=== PATIENT | male | born 1970 | race Caucasian/White ===

== ENCOUNTER → 2021-02-08 08:25 | Outpatient (BNVA) | payer OTHER, SELFPAY | PROVIDERS: PCP Internal Medicine; Visit Provider Internal Medicine ==

== ENCOUNTER 2021-03-06 06:03 | Outpatient (REF) | payer OTHER, SELFPAY | END 2021-03-06 06:04 | disposition home or self-care (01) | LOC: HO.RADIR 06:03 | PROVIDERS: Visit Provider Internal Medicine | DX: M51.24 Other intervertebral disc displacement, thoracic region (principal) | CPT/HCPCS: 20553; J3300; Q9967 ==

== ENCOUNTER 2021-03-20 05:59 | Outpatient (REF) | payer OTHER, SELFPAY ==
--- NOTE | ~2021-03-20 | FL_ITS ---
EXAMINATION: XR FLUOROSCOPY WITH IMAGES CLINICAL INFORMATION: Interval disc displacement COMPARISON: None. TECHNIQUE: Fluoroscopy performed by at least Amie Ayon. Fluoroscopy time: 0.1 minutes DAP: 1.43 Gycm2 Images: 2 FINDINGS: Fluoroscopy was provided to referring physician for pain management. FL/FL guidance in treatment room IMPRESSION: Fluoroscopy provided to referring physician for pain management.
== END 2021-03-20 06:00 | disposition home or self-care (01) ==
LOC: HO.RADIR 05:59
PROVIDERS: Visit Provider Internal Medicine
DX: M51.24 Other intervertebral disc displacement, thoracic region (principal); G58.8 Other specified mononeuropathies
CPT/HCPCS: 64420; 64421; Q9967

== ENCOUNTER → 2021-03-25 11:32 | Outpatient (BNVA) | payer OTHER, SELFPAY | PROVIDERS: PCP Internal Medicine; Visit Provider Internal Medicine ==

== ENCOUNTER 2021-05-01 06:29 | Outpatient (REF) | payer OTHER, SELFPAY ==
--- NOTE | ~2021-05-01 | FL_ITS ---
EXAMINATION: XR FLUOROSCOPY WITH IMAGES CLINICAL INFORMATION: Mononeuropathy. COMPARISON: None. TECHNIQUE: Fluoroscopy performed by Amie Ayon. Fluoroscopy time: 0.6 minutes DAP: 5.07 Gycm2 Images: 1 FINDINGS: A single image obtained of the left posterior chest wall reveals needle positioned adjacent to and inferior to left 11th, 10th and ninth ribs with contrast opacification for pain management. FL/FL guidance in treatment room IMPRESSION: Fluoroscopy provided to referring physician for pain management.
== END 2021-05-01 06:30 | disposition home or self-care (01) ==
LOC: HO.RADIR 06:29
PROVIDERS: Visit Provider Internal Medicine
DX: G58.8 Other specified mononeuropathies (principal); M51.24 Other intervertebral disc displacement, thoracic region

== ENCOUNTER → 2021-05-20 09:56 | Outpatient (BNVA) | payer OTHER, SELFPAY | PROVIDERS: PCP Internal Medicine; Visit Provider Internal Medicine ==

== ENCOUNTER → 2021-05-31 09:39 | Outpatient (BNVA) | payer OTHER, SELFPAY | PROVIDERS: PCP Internal Medicine; Visit Provider Internal Medicine ==

== ENCOUNTER → 2021-07-05 08:22 | Outpatient (BNVA) | payer OTHER, SELFPAY | PROVIDERS: PCP Internal Medicine; Visit Provider Internal Medicine ==

== ENCOUNTER 2021-07-31 05:56 | Outpatient (REF) | payer OTHER, SELFPAY ==
--- NOTE | ~2021-07-31 | FL_ITS ---
EXAMINATION: XR FLUOROSCOPY WITH IMAGES CLINICAL INFORMATION: G58.8 - Other specified mononeuropathies COMPARISON: None. TECHNIQUE: Fluoroscopy performed by Dr. Osito Moses. Fluoroscopy time: 1.7 minutes DAP: 11.6 Gycm2 Images: 4 FINDINGS: There is interlaminar spinal needle approximately level T11-T12. Epidural contrast is seen. No vascular communication. No bony abnormality. FL/FL guidance in treatment room IMPRESSION: Fluoroscopy for pain management procedure.
== END 2021-07-31 05:57 | disposition home or self-care (01) ==
LOC: HO.RADIR 05:56
PROVIDERS: Visit Provider Internal Medicine
DX: M51.24 Other intervertebral disc displacement, thoracic region (principal); G58.8 Other specified mononeuropathies; Z79.899 Other long term (current) drug therapy
CPT/HCPCS: 62323; J1040; Q9967

== ENCOUNTER → 2021-08-23 08:53 | Outpatient (BNVA) | payer OTHER, SELFPAY | PROVIDERS: PCP Internal Medicine; Visit Provider Internal Medicine ==

== ENCOUNTER → 2021-11-11 08:49 | Outpatient (BNVA) | payer OTHER, SELFPAY | PROVIDERS: PCP Internal Medicine; Visit Provider Internal Medicine ==

== ENCOUNTER → 2021-12-09 08:52 | Outpatient (BNVA) | payer OTHER, SELFPAY | PROVIDERS: PCP Internal Medicine; Visit Provider Internal Medicine | DX: Z13.89 Encounter for screening for other disorder (principal) ==

== ENCOUNTER → 2022-01-17 09:28 | Outpatient (BNVA) | payer OTHER, SELFPAY | PROVIDERS: PCP Internal Medicine; Visit Provider Nurse Practitioner Family | DX: Z13.89 Encounter for screening for other disorder (principal) ==

== ENCOUNTER 2022-01-22 10:27 | Day surgery (SDC) | payer OTHER, SELFPAY ==
[2022-01-16 11:07] VITALS: BMI 28.2
--- NOTE | 2022-01-21 09:25 | P.CONAN_ITS ---
Documented by User: Cassandra Costello NP 01/21/22 09:31 HPI - Anesthesia Eval Consult details Narrative: 51yo M for Lumbar Spinal Cord Stimulation Trial plavix for hx of cardiac stent prn opioids daily PMFSH Active Problems Active Problems: All Active Problems (Updated 08/23/21 @ 10:50 by Osito Moses MD) Post laminectomy syndrome (Acute) Intercostal neuralgia (Acute) Herniated thoracic disc without myelopathy (Acute) Past Medical History Medical History (Updated 08/23/21 @ 10:50 by Osito Moses MD) Colonoscopy refused Herniated thoracic disc without myelopathy Intercostal neuralgia Low back pain with sciatica BARRY (obstructive sleep apnea) Post laminectomy syndrome Rib pain Thoracic radiculopathy due to diabetes mellitus Type 2 diabetes mellitus Surgical History Surgical History (Updated 02/08/21 @ 08:32 by YANNI Lambert) Presence of stent in coronary artery Social History Social History Patient Tobacco Use Status: Never used Tobacco Use of substances other than those prescribed or required for medical reasons: Yes Substance Use Frequency: Weekly Are you DNR?: No Advance Directives: No Advance Directives Information Provided: Yes Meds Allergies Allergy/AdvReac Type Severity Reaction Status Date / Time duloxetine [From Cymbalta] Allergy unknown Verified 01/17/22 09:51 nabumetone Allergy unknown Verified 01/17/22 09:51 penicillin G Allergy unknown Verified 01/17/22 09:51 venlafaxine [From Effexor] Allergy unknown Verified 01/17/22 09:51 Home Medications Medication Instructions Recorded Confirmed Last Taken Type aspirin 81 mg tablet,delayed 81 mg PO DAILY 02/08/21 01/17/22 Unknown History release (Adult Aspirin Regimen) carvedilol 3.125 mg tablet 3.125 mg PO BID 02/08/21 01/17/22 Unknown History clopidogrel 75 mg tablet 75 mg PO DAILY 02/08/21 01/17/22 Unknown History isosorbide mononitrate 30 mg 30 mg PO DAILY 02/08/21 01/17/22 Unknown History tablet,extended release 24 hr rosuvastatin 40 mg tablet 40 mg PO DAILY 02/08/21 01/17/22 Unknown History pantoprazole 40 mg granules 40 mg PO DAILY 03/06/21 01/17/22 Unknown History delayed-release for susp in packet (Protonix) empagliflozin 25 mg tablet 25 mg PO DAILY 11/11/21 01/17/22 Unknown History (Jardiance) glipizide 5 mg tablet 5 mg PO BID 11/11/21 01/17/22 Unknown History Exam Exam Date and Time: January 21, 2022 0925 Height,Weight and Vital Signs: Height 6 ft 1 in Weight 97.069 kg Assessment and Plan Assessment Anesthesia Assessment: Chart Reviewed Documented by User: Kary Infante MD 01/22/22 13:04 [facility] Active Problems Active Problems: All Active Problems (Updated 08/23/21 @ 10:50 by Osito Moses MD) Post laminectomy syndrome (Acute) Intercostal neuralgia (Acute) Herniated thoracic disc without myelopathy (Acute) CAD s/p [place] 2017 Has had 5 stents since 2016. Last stent 12/2020. On plavix. Last dose 01/15/22. Denies recent chest pain. BARRY. Not using CPAP machine Past Medical History Medical History (Updated 08/23/21 @ 10:50 by Osito Moses MD) Colonoscopy refused Herniated thoracic disc without myelopathy Intercostal neuralgia Low back pain with sciatica BARRY (obstructive sleep apnea) Post laminectomy syndrome Rib pain Thoracic radiculopathy due to diabetes mellitus Type 2 diabetes mellitus Family History Family history of problems with anesthesia: No Surgical History Surgical History (Updated 02/08/21 @ 08:32 by YANNI Lambert) Presence of stent in coronary artery History of Problems with Anesthesia: No Social History Social History Patient Tobacco Use Status: Never used Tobacco Use of substances other than those prescribed or required for medical reasons: Yes Substance Use Frequency: Weekly Are you DNR?: No Advance Directives: No Advance Directives Information Provided: Yes Meds Allergies Allergy/AdvReac Type Severity Reaction Status Date / Time duloxetine [From Cymbalta] Allergy unknown Verified 01/17/22 09:51 nabumetone Allergy unknown Verified 01/17/22 09:51 penicillin G Allergy unknown Verified 01/17/22 09:51 venlafaxine [From Effexor] Allergy unknown Verified 01/17/22 09:51 Home Medications Medication Instructions Recorded Confirmed Last Taken Type aspirin 81 mg tablet,delayed 81 mg PO DAILY 02/08/21 01/17/22 Unknown History release (Adult Aspirin Regimen) carvedilol 3.125 mg tablet 3.125 mg PO BID 02/08/21 01/17/22 Unknown History clopidogrel 75 mg tablet 75 mg PO DAILY 02/08/21 01/17/22 Unknown History isosorbide mononitrate 30 mg 30 mg PO DAILY 02/08/21 01/17/22 Unknown History tablet,extended release 24 hr rosuvastatin 40 mg tablet 40 mg PO DAILY 02/08/21 01/17/22 Unknown History pantoprazole 40 mg granules 40 mg PO DAILY 03/06/21 01/17/22 Unknown History delayed-release for susp in packet (Protonix) empagliflozin 25 mg tablet 25 mg PO DAILY 11/11/21 01/17/22 Unknown History (Jardiance) glipizide 5 mg tablet 5 mg PO BID 11/11/21 01/17/22 Unknown History Exam Height,Weight and Vital Signs: Height 6 ft 1 in Weight 97.069 kg Vital Signs Temp Pulse Resp BP Pulse Ox 01/22/22 11:22 96.4 F L 96 18 138/91 H 100 Pertinent Lab Results Pertinent Lab Results: Lab Results 01/22/22 Range/Units 10:56 POC Glucose 128 H (60-115) mg/dL Airway Mallampati Class: II TM Dist: >3cm Neck ROM: Full Loose/Missing/Broken Teeth: No Heart: RRR Lungs: CTAB Assessment and Plan Assessment Anesthesia Assessment: Anesthesia Plan Discussed Final Anesthetic Review Family History of Problems with Anesthesia: No History of Problems with Anesthesia: No NPO: Yes ASA Class: III Final Preanesthetic Review: No Changes in Pt Med Stat, Meds/Allgs Chart Reviewed, Consent Obtained/Reviewed and Anes Risks/Benef Reviewed Patient Risk: Intermediate Procedure Risk: Low Assessment/Block/Sedation in SS: Assess/Block/Sedation-SS Anesthetic Plan Anesthetic Plan: MAC: Disposition: Standard PACU
--- NOTE | ~2022-01-22 | FL_ITS ---
EXAMINATION: XR FLUOROSCOPY WITH IMAGES CLINICAL INFORMATION: Spinal stimulator trial. COMPARISON: 07/31/2021. TECHNIQUE: Fluoroscopy performed by Dr. Moses. Fluoroscopy time: 6.7 minutes DAP: 19.1 mGycm2 Images: 2 FINDINGS: There are 2 digital images of thoracic spine revealing a solitary posterior spinal stimulator in mid to upper dorsal spine region. Visualized bones are grossly unremarkable except for mild lateral spondylosis. FL/FL guidance in OR IMPRESSION: Fluoroscopy guidance was provided to the referring physician during spinal stimulator trial.
[2022-01-22 10:58] LABS: Glucose, Whole Blood 128 mg/dL (60-115)
[2022-01-22 11:22] VITALS: BP 138/91; PULSE 96; RESP 18; TEMP 35.8; O2SAT 100; BMI 27.7
[2022-01-22] MEDS: Lactated Ringers 1,000 ML 100 ML IVCONT (11:29)
--- NOTE | 2022-01-22 12:44 | MHC.SHP ---
Pre-Procedural Eval Section A Date of Service: 01/22/22 The patient is an INPATIENT: No Changes since office visit: Yes Patient answered all questions The History & Physical has been completed within 30 days and I have reviewed it.: No Section B Chief Complaint: Postlaminectomy syndrome Relevant Family History (Specify if Yes): No Relevant Social History: None Present Medications: None Medical History: Significant History (recovered from COVID 4 weeks ago) Allergies: Allergies Allergy/AdvReac Type Severity Reaction Status Date / Time duloxetine [From Cymbalta] Allergy unknown Verified 01/17/22 09:51 nabumetone Allergy unknown Verified 01/17/22 09:51 penicillin G Allergy unknown Verified 01/17/22 09:51 venlafaxine [From Effexor] Allergy unknown Verified 01/17/22 09:51 Plan Diagnosis/Plan: Unchanged I have reviewed the history and physical and performed a pertinent physical examination on my patient. No changes have occurred unless specified.
--- NOTE | 2022-01-22 13:09 | P.OP_ITS ---
Operative Note Operative Note Date of Service: 01/22/22 Narrative: Percutaneous Spinal Cord Stimulator Trial, Lumbar After obtaining written consent, pre-procedure blood pressure and heart rate were recorded and are in the nursing record for review. A peripheral IV was started. Antibiotics, clindamycin 900mg, were given intraoperatively. The patient was placed in a prone position.? The patient was sedated by the anesthesiologist. The thoracolumbar area was widely prepped with ChloraPrep, allowed to dry and draped in sterile fashion. Fluoroscopy was used to identify the target interlaminar spaces and appropriate needle insertion sites. The skin and subcutaneous tissue was anesthetized with 1% lidocaine and 0.25% ropivacaine. A 14 gauge Tuohy epidural needles was then advanced from this point in a right paramedian approach to the epidural space opening at T12/L1 in terspace, where loss of resistance was found using air. No paresthesias were elicited with needle placement. No CSF or heme was present upon needle placement. A guide wire was then used to confirm placement into the epidural space at each level under live fluoroscopy. A 1x8 stimulator lead wire was then threaded to the top of T5 under live fluoroscopy. Resistance was encountered around T7/T8 epidural space. A stiff stylet was used to negotiate this area of resistance. The lead advanced midline.?Paresthesia testing showed reasonable coverage of the area of patient's usual pain using the single lead. Therefore, decision was made to proceed with trial using single lead only. The Tuohy needle was then completely removed under live fluoroscopy. The stimulator wire was then secured with 0 ticron sutures securing the anchors, sterile strips and gauze and tegaderm for skin dressing. The patient tolerated the procedure well and no complications were encountered. Following the procedure the patient's vital signs were stable. The patient was discharged home in good condition after being given discharge instructions. Time Out: Immediately prior to the procedure, the following was verbally con firmed that there is a signed consent form and that the correct patient, planned procedure, site and side are consistent with documentation and that necessary equipment and/or blood products are available prior to the start of the case. Complications: none EBL: <5 cc
--- NOTE | 2022-01-22 13:09 | PM.OP ---
Brief Operative Note Date of Service: 01/22/22 Pre-op diagnosis: Post-laminectomy syndrome Post-op diagnosis: same Procedure: Thoracolumbar spinal cord stimulation trial Implants: SCS trial lead Surgeon: Osito Moses MD Anesthesia: MAC Was an Structural Steel Erector used for this Procedure?: No Estimated blood loss (mL): 3 Pathology: none sent Condition: stable Disposition: PACU
[2022-01-22 14:52] VITALS: BP 144/85; PULSE 78; RESP 16; TEMP 36.6; O2SAT 99
[2022-01-22 15:05] VITALS: BP 138/86; PULSE 81; RESP 18; TEMP 36.5; O2SAT 99
== END 2022-01-22 15:40 | disposition home or self-care (01) ==
PROVIDERS: PCP Internal Medicine; Visit Provider Internal Medicine
PROC: (CPT 63650; principal; 2022-01-22 12:30)
DX: M51.24 Other intervertebral disc displacement, thoracic region (principal); M96.1 Postlaminectomy syndrome, not elsewhere classified; M54.40 Lumbago with sciatica, unspecified side; E11.69 Type 2 diabetes mellitus with other specified complication; M54.14 Radiculopathy, thoracic region; G58.0 Intercostal neuropathy; G47.33 Obstructive sleep apnea (adult) (pediatric); Z79.84 Long term (current) use of oral hypoglycemic drugs; Z79.82 Long term (current) use of aspirin; Z79.899 Other long term (current) drug therapy; Z88.0 Allergy status to penicillin; Z88.8 Allergy status to other drugs, medicaments and biological substances
CPT/HCPCS: 63650; 82947; C1713; C1816; C1897; J2250; J2795

== ENCOUNTER → 2022-01-28 09:42 | Outpatient (BNVA) | payer OTHER, SELFPAY | PROVIDERS: PCP Internal Medicine; Visit Provider Nurse Practitioner Family | DX: Z13.89 Encounter for screening for other disorder (principal) ==

== ENCOUNTER → 2022-02-14 09:25 | Outpatient (BNVA) | payer OTHER, SELFPAY | PROVIDERS: PCP Internal Medicine; Visit Provider Nurse Practitioner Family | DX: Z51.81 Encounter for therapeutic drug level monitoring (principal); F11.20 Opioid dependence, uncomplicated | CPT/HCPCS: 99211 ==

== ENCOUNTER 2022-03-03 12:15 | Outpatient (REF) | payer OTHER, SELFPAY ==
--- NOTE | ~2022-03-03 | XR_ITS ---
EXAMINATION: XR SHOULDER, RIGHT CLINICAL INFORMATION: Shoulder pain. COMPARISON: None TECHNIQUE: Three views of the right shoulder. FINDINGS: There is calcific tendinitis of the right shoulder. No acute fracture or dislocation is identified. No significant degenerative change of the acromioclavicular joint is noted. There is mild spurring about the glenohumeral joint. XR/XR shoulder RT min 2V IMPRESSION: Calcific tendinitis of the right shoulder.
== END 2022-03-03 12:16 | disposition home or self-care (01) ==
LOC: HO.HOSX 12:15
PROVIDERS: Visit Provider Orthopaedic Surgery
DX: M25.511 Pain in right shoulder (principal)
CPT/HCPCS: 73030

== ENCOUNTER 2022-03-18 18:48 | Outpatient (REF) | payer OTHER, SELFPAY ==
--- NOTE | ~2022-03-18 | MR_ITS ---
EXAMINATION: MR SHOULDER WITHOUT CONTRAST, RIGHT CLINICAL INFORMATION: Pain. COMPARISON: X-rays 03/03/2022 TECHNIQUE: MRI of the shoulder without contrast was performed on a high-field scanner. FINDINGS: ROTATOR CUFF: Mild supraspinatus tendinosis. Infraspinatus, teres minor, subscapularis are intact. Mild subscapularis tendinosis. No tendon defect or retraction is seen. No muscle atrophy or fatty infiltration. BICEPS: Biceps tendon is intact. There is a 18 x 4 mm low T1/T2 signal focus overlying the region of the proximal biceps tendon/distal subscapularis tendon, along the deep surface of the deltoid muscle may reflect calcific tendinitis or bursitis. CORACOACROMIAL ARCH: The undersurface of the acromion is mildly curved with no subacromial spur. Mild acromioclavicular arthritis. Trace fluid in the subacromial subdeltoid space. LABRUM/CAPSULE: Increased signal in the superior labrum, with ill-definition/irregularity of the free edge, suggesting degeneration with possible associated fraying/tear. No focal labral tears otherwise seen. Inferior capsule is intact. GLENOHUMERAL JOINT/MARROW: No fracture. No significant arthropathy. No significant joint effusion. MR/MR shoulder RT wo con IMPRESSION: 1. Mild supraspinatus and subscapularis tendinosis. No focal tear or retraction is seen. 2. There is a 18 x 4 mm mm focus of calcific tendinitis or bursitis overlying the proximal biceps tendon/distal subscapularis tendon, as described above. 3. Mild acromioclavicular arthritis. 4. Superior labral degeneration with possible free edge fraying/tear.
== END 2022-03-18 18:49 | disposition home or self-care (01) ==
LOC: HO.MRI 18:48
PROVIDERS: Visit Provider Orthopaedic Surgery
DX: M24.811 Other specific joint derangements of right shoulder, not elsewhere classified (principal)
CPT/HCPCS: 73221

== ENCOUNTER 2022-04-09 10:45 | Day surgery (SDC) | payer OTHER, SELFPAY ==
--- NOTE | 2022-04-08 09:03 | HO.ANESPROP2 ---
Documented by User: Cassandra Costello NP 04/08/22 09:05 HPI - Anesthesia Eval Consult details Narrative: 51yo M for Thoracolumbar Spinal Cord Stimulation Implant s/p trial 01/2022 with MAC plavix for hx CAD s/p [place] 2017 Has had 5 stents since 2016. Last stent 12/2020. prn opioids daily PMFSH Active Problems Active Problems: All Active Problems (Updated 03/03/22 @ 16:06 by Kwame Vega MD) Internal derangement of right shoulder (Acute) Calcific tendinitis of right shoulder (Acute) Post laminectomy syndrome (Acute) Intercostal neuralgia (Acute) Herniated thoracic disc without myelopathy (Acute) Past Medical History Medical History Colonoscopy refused Herniated thoracic disc without myelopathy Intercostal neuralgia Low back pain with sciatica BARRY (obstructive sleep apnea) Post laminectomy syndrome Rib pain Thoracic radiculopathy due to diabetes mellitus Type 2 diabetes mellitus Family History Family history of problems with anesthesia: No Surgical History Surgical History Presence of stent in coronary artery History of Problems with Anesthesia: No Social History Social History (Updated 04/09/22 @ 12:35 by Kary Infante MD) Patient Tobacco Use Status: Never used Tobacco Second Hand Smoke Exposure: No Use of substances other than those prescribed or required for medical reasons: Yes Substance Use Type: Marijuana Substance Use Frequency: Occasionally Last Used Substance: Weeks (ago) Are you DNR?: No Advance Directives: No Advance Directives Information Provided: Yes Advance Directives on File: No Meds Allergies Allergy/AdvReac Type Severity Reaction Status Date / Time duloxetine [From Cymbalta] Allergy unknown Verified 03/03/22 15:27 nabumetone Allergy unknown Verified 03/03/22 15:27 penicillin G Allergy unknown Verified 03/03/22 15:27 venlafaxine [From Effexor] Allergy unknown Verified 03/03/22 15:27 Home Medications Medication Instructions Recorded Confirmed Last Taken Type aspirin 81 mg tablet,delayed 81 mg PO DAILY 02/08/21 01/17/22 Unknown History release (Adult Aspirin Regimen) carvedilol 3.125 mg tablet 3.125 mg PO BID 02/08/21 01/17/22 Unknown History clopidogrel 75 mg tablet 75 mg PO DAILY 02/08/21 01/17/22 Unknown History isosorbide mononitrate 30 mg 30 mg PO DAILY 02/08/21 01/17/22 Unknown History tablet,extended release 24 hr rosuvastatin 40 mg tablet 40 mg PO DAILY 02/08/21 01/17/22 Unknown History pantoprazole 40 mg granules 40 mg PO DAILY 03/06/21 01/17/22 Unknown History delayed-release for susp in packet (Protonix) empagliflozin 25 mg tablet 25 mg PO DAILY 11/11/21 01/17/22 Unknown History (Jardiance) glipizide 5 mg tablet 5 mg PO BID 11/11/21 01/17/22 Unknown History glipizide 10 mg tablet 10 mg PO BID 02/14/22 Unknown History Exam Exam Date and Time: April 08, 2022 0903 Assessment and Plan Assessment Anesthesia Assessment: Chart Reviewed Final Anesthetic Review Family History of Problems with Anesthesia: No History of Problems with Anesthesia: No Documented by User: Kary Infante MD 04/09/22 12:42 HPI - Anesthesia Eval Consult details Narrative: 51yo M for Thoracolumbar Spinal Cord Stimulation Implant s/p trial 01/2022 with MAC plavix for hx CAD s/p [place] 2017 Has had 5 stents since 2016. Last stent 12/2020. prn opioids daily. Last dose 04/08/22 Plavix and aspirin last taken 12 days ago PMFSH Past Medical History Medical History Colonoscopy refused Herniated thoracic disc without myelopathy Intercostal neuralgia Low back pain with sciatica BARRY (obstructive sleep apnea) Post laminectomy syndrome Rib pain Thoracic radiculopathy due to diabetes mellitus Type 2 diabetes mellitus Surgical History Surgical History Presence of stent in coronary artery Social History Social History (Updated 04/09/22 @ 12:35 by Kary Infante MD) Patient Tobacco Use Status: Never used Tobacco Second Hand Smoke Exposure: No Use of substances other than those prescribed or required for medical reasons: Yes Substance Use Type: Marijuana Substance Use Frequency: Occasionally Last Used Substance: Weeks (ago) Are you DNR?: No Advance Directives: No Advance Directives Information Provided: Yes Advance Directives on File: No Meds Allergies Allergy/AdvReac Type Severity Reaction Status Date / Time duloxetine [From Cymbalta] Allergy unknown Verified 03/03/22 15:27 nabumetone Allergy unknown Verified 03/03/22 15:27 penicillin G Allergy unknown Verified 03/03/22 15:27 venlafaxine [From Effexor] Allergy unknown Verified 03/03/22 15:27 Home Medications Medication Instructions Recorded Confirmed Last Taken Type aspirin 81 mg tablet,delayed 81 mg PO DAILY 02/08/21 01/17/22 Unknown History release (Adult Aspirin Regimen) carvedilol 3.125 mg tablet 3.125 mg PO BID 02/08/21 01/17/22 Unknown History clopidogrel 75 mg tablet 75 mg PO DAILY 02/08/21 01/17/22 Unknown History isosorbide mononitrate 30 mg 30 mg PO DAILY 02/08/21 01/17/22 Unknown History tablet,extended release 24 hr rosuvastatin 40 mg tablet 40 mg PO DAILY 02/08/21 01/17/22 Unknown History pantoprazole 40 mg granules 40 mg PO DAILY 03/06/21 01/17/22 Unknown History delayed-release for susp in packet (Protonix) empagliflozin 25 mg tablet 25 mg PO DAILY 11/11/21 01/17/22 Unknown History (Jardiance) glipizide 5 mg tablet 5 mg PO BID 11/11/21 01/17/22 Unknown History glipizide 10 mg tablet 10 mg PO BID 02/14/22 Unknown History Exam Height,Weight and Vital Signs: Height 6 ft 1 in Weight 97.069 kg Vital Signs Temp Pulse Resp BP Pulse Ox O2 Del Method 04/09/22 12:10 97.0 F 83 16 142/94 H 99 Room Air Pertinent Lab Results Pertinent Lab Results: Lab Results 04/09/22 Range/Units 12:07 POC Glucose 181 H (60-115) mg/dL Airway Mallampati Class: III TM Dist: >3cm Neck ROM: Full Loose/Missing/Broken Teeth: No (Patient denies) Heart: RRR Lungs: CTAB Assessment and Plan Assessment Anesthesia Assessment: Anesthesia Plan Discussed Final Anesthetic Review NPO: Yes ASA Class: III Final Preanesthetic Review: No Changes in Pt Med Stat, Meds/Allgs Chart Reviewed, Consent Obtained/Reviewed and Anes Risks/Benef Reviewed Patient Risk: Intermediate Procedure Risk: Intermediate Assessment/Block/Sedation in SS: Assess/Block/Sedation-SS Anesthetic Plan Anesthetic Plan: GA and MAC: Disposition: Standard PACU
--- NOTE | ~2022-04-09 | FL_ITS ---
EXAMINATION: XR FLUOROSCOPY WITH IMAGES CLINICAL INFORMATION: Spinal stimulator. Pain management. COMPARISON: Fluoroscopic spot views dorsal spine, 01/22/2022. TECHNIQUE: Fluoroscopy performed by Dr. Osito Moses. Fluoroscopy time: 9.9 minutes. Cumulative Dose: 202 mGy. DAP: 33.7 Gy-cm2. Images: 4. FINDINGS: There are 2 spinal stimulator electrodes seen ascending the posterior spinal canal. The electrode tips are at level of the upper thoracic spine, estimated around T3 and T4. There is no visible kinking or defect of the leads. FL/FL guidance in OR IMPRESSION: Fluoroscopy for pain management procedure.
[2022-04-09 11:50] VITALS: BMI 28.2
[2022-04-09 12:10] VITALS: BP 142/94; PULSE 83; RESP 16; TEMP 36.1; O2SAT 99
[2022-04-09 12:11] LABS: Glucose, Whole Blood 181 mg/dL (60-115)
--- NOTE | 2022-04-09 13:03 | MHC.SHP ---
Pre-Procedural Eval Section A Date of Service: 04/09/22 The patient is an INPATIENT: No Changes since office visit: Yes Patient answered all questions The History & Physical has been completed within 30 days and I have reviewed it.: Yes Section B Chief Complaint: postlaminectomy syndrome Relevant Family History (Specify if Yes): No Relevant Social History: Other (specify) Present Medications: see Short Stay Collaborative assessment Medical History: No relevant PMH (CAD) History of Previous Operations: Relevant previous surgery/procedure and date(s) (Failed back surgery) Allergies: Allergies Allergy/AdvReac Type Severity Reaction Status Date / Time duloxetine [From Cymbalta] Allergy unknown Verified 03/03/22 15:27 nabumetone Allergy unknown Verified 03/03/22 15:27 penicillin G Allergy unknown Verified 03/03/22 15:27 venlafaxine [From Effexor] Allergy unknown Verified 03/03/22 15:27 Review of Systems Sugical H&P ROS: Negative: Constitution, Cardiovascular and Respiratory Exam Surgical H&P Exam: Normal: HEENT, Normal: Heart and Normal: Lungs Plan Diagnosis/Plan: Unchanged I have reviewed the history and physical and performed a pertinent physical examination on my patient. No changes have occurred unless specified.
--- NOTE | 2022-04-09 13:12 | P.BOP_ITS ---
Brief Operative Note Date of Service: 04/09/22 Pre-op diagnosis: Postlaminectomy syndrome Post-op diagnosis: same Procedure: Thoracolumbar spinal cord stimulation implant Implants: Nevro HFX SCS system Surgeon: Osito Moses MD Anesthesia: MAC Was an Client Application Support Engineer used for this Procedure?: No Estimated blood loss (mL): 20 Pathology: none sent Condition: stable Disposition: PACU
--- NOTE | 2022-04-09 13:13 | P.OP_ITS ---
Operative Note Operative Note Date of Service: 04/09/22 Narrative: Thoracolumbar SCS Implant After proper identification, the patient was brought to the operating room. After prone positioning, patient was sedated under anesthesia. Care was taken during positioning to protect and pad all pressure points. Clindamycin 900mmg was given as preoperative antibiotic prophylaxis. The back was prepped and draped in the usual sterile fashion using Chloroprep. The fluoroscope unit was sterilely draped and brought into field, the vertebral target and the T12/L1 interspace was localized with fluoroscopy after the skin was anesthetized with 0.25% ropivicaine and 1% lidocaine using a 25-gauge needle. A 5 cm incision was then made in the midline back with a 15 blade between the L1 and L2 spinous processes. Electrocautery was used to dissect down to the prevertebral fascia. Two 14-gauge introducer Tuohy needles were advanced using AP and contralateral oblique fluoroscopy views to the T12/L1 interspace on either side of the inferior spinous process. Upon loss of resistance, a flexible stylet was advanced and verified to be in the epidural space.? The left electrode was then threaded up to the middle of T4 vertebral body. The right electrode was threaded to the top of T4 vertebral body. Resistance was noted at T12 but we were able to negotiate the lead around it while achieving posterior midline position at the desired level. With the needles covering the leads, we placed 2 sets of Tycron sutures per electrode for the anchor stitches. We then backed out the needle under live fluoroscopy, verifying that the electrodes were in the correct position and we then used the locking anchors to secure the electrodes down to the prevertebral fascia, tying them down with the Tycron sutures. At this point, a pocket for the generator was made in the right iliac fossa. With the skin and subcutaneous tissues anesthetized with 0.25% ropivicaine and 1% lidocaine, a horizontal 2- inch incision was made using a 15 blade and combination of sharp dissection, blunt dissection and electrocautery was used. A pocket was created about half an inch below the skin. The pocket was then irrigated with normal saline containing vancomycin. Hemostasis was attained with electrocautery. We then tunneled the electrodes from the back into the pocket using the tunneling device. The electrodes were then connected to the generator. The wounds were irrigated and then closed using 2-0 Tycron for fascial closure, followed by 3-0 monocryl for deep dermal and 4-0 monocryl for subcuticular layer. The wounds were dressed with dermabond, bacitracin ointment, gauze and tegaderm. The patient was then woken up, turned supine and brought to the PACU in stable condition.
[2022-04-09 13:30] LABS: MRSA Nasal PCR NEGATIVE (Negative); SA Nasal PCR NEGATIVE (Negative)
[2022-04-09 16:37] VITALS: BP 116/79; PULSE 90; RESP 15; TEMP 36.1; O2SAT 97
[2022-04-09 16:42] VITALS: BP 114/81; PULSE 92; RESP 16; O2SAT 98
[2022-04-09 16:52] VITALS: BP 111/82; PULSE 90; RESP 16; O2SAT 97
[2022-04-09 17:07] VITALS: BP 114/81; PULSE 90; RESP 18; TEMP 36.1; O2SAT 95
== END 2022-04-09 17:20 | disposition home or self-care (01) ==
PROVIDERS: Nurse Practitioner Family; Visit Provider Internal Medicine
PROC: (CPT 63685; principal; 2022-04-09 12:30)
DX: M96.1 Postlaminectomy syndrome, not elsewhere classified (principal); M54.14 Radiculopathy, thoracic region; M75.31 Calcific tendinitis of right shoulder; E11.9 Type 2 diabetes mellitus without complications; Z79.84 Long term (current) use of oral hypoglycemic drugs; Z79.899 Other long term (current) drug therapy; G47.33 Obstructive sleep apnea (adult) (pediatric); Z88.0 Allergy status to penicillin; Z88.8 Allergy status to other drugs, medicaments and biological substances; Z95.5 Presence of coronary angioplasty implant and graft
CPT/HCPCS: 63685; 63650 ×2; 82947; 87640; 87641; C1713; C1778; C1787; C1816; C1897; J2250; J2405; J2795; J3010; J3370

== ENCOUNTER 2022-04-16 11:19 | Day surgery (SDC) | payer OTHER, SELFPAY ==
--- NOTE | 2022-04-15 09:19 | HO.ANESPROP2 ---
HPI - Anesthesia Eval Consult details Narrative: 51yo M for Thoracolumbar Spinal Cord Stimulator Lead Revision/replacement s/p implant 04/09/22 with MAC plavix for hx CAD s/p DC 2017 Has had 5 stents since 2016. Last stent 12/2020. prn opioids daily PMFSH Active Problems Active Problems: All Active Problems (Updated 03/03/22 @ 16:06 by Kwame Vega MD) Internal derangement of right shoulder (Acute) Calcific tendinitis of right shoulder (Acute) Post laminectomy syndrome (Acute) Intercostal neuralgia (Acute) Herniated thoracic disc without myelopathy (Acute) Past Medical History Medical History Colonoscopy refused Herniated thoracic disc without myelopathy Intercostal neuralgia Low back pain with sciatica BARRY (obstructive sleep apnea) Post laminectomy syndrome Rib pain Thoracic radiculopathy due to diabetes mellitus Type 2 diabetes mellitus Family History Family history of problems with anesthesia: No Surgical History Surgical History Presence of stent in coronary artery History of Problems with Anesthesia: No Social History Social History (Updated 04/09/22 @ 12:35 by Kary Infante MD) Patient Tobacco Use Status: Never used Tobacco Second Hand Smoke Exposure: No Substance Use Type: Marijuana Meds Allergies Allergy/AdvReac Type Severity Reaction Status Date / Time duloxetine [From Cymbalta] Allergy unknown Verified 04/18/22 10:35 nabumetone Allergy unknown Verified 04/18/22 10:35 penicillin G Allergy unknown Verified 04/18/22 10:35 venlafaxine [From Effexor] Allergy unknown Verified 04/18/22 10:35 Home Medications Medication Instructions Recorded Confirmed Last Taken Type aspirin 81 mg tablet,delayed 81 mg PO DAILY 02/08/21 04/18/22 03/28/22 History release (Adult Aspirin Regimen) carvedilol 3.125 mg tablet 3.125 mg PO BID 02/08/21 04/18/22 04/08/22 History clopidogrel 75 mg tablet 75 mg PO DAILY 02/08/21 04/18/22 03/28/22 History isosorbide mononitrate 30 mg 30 mg PO DAILY 02/08/21 04/18/22 04/08/22 History tablet,extended release 24 hr rosuvastatin 40 mg tablet 40 mg PO DAILY 02/08/21 04/18/22 04/08/22 History pantoprazole 40 mg granules 40 mg PO DAILY 03/06/21 04/18/22 04/08/22 History delayed-release for susp in packet (Protonix) empagliflozin 25 mg tablet 25 mg PO DAILY 11/11/21 04/18/22 04/08/22 History (Jardiance) glipizide 5 mg tablet 5 mg PO BID 11/11/21 04/18/22 04/08/22 History glipizide 10 mg tablet 10 mg PO BID 02/14/22 04/18/22 04/08/22 History Exam Exam Date and Time: April 15, [id number] Assessment and Plan Assessment Anesthesia Assessment: Chart Reviewed Final Anesthetic Review Family History of Problems with Anesthesia: No History of Problems with Anesthesia: No
[2022-04-16] VITALS (7 sets, daily range): BP systolic 129–166; BP diastolic 84–98; PULSE 96–103; RESP 20–22; TEMP 36.4–37.2; O2SAT 99; BMI 28.2
--- NOTE | ~2022-04-16 | FL_ITS ---
EXAMINATION: XR FLUOROSCOPY WITH IMAGES CLINICAL INFORMATION: Thoracolumbar spinal cord stimulator trial. COMPARISON: Fluoroscopy with spot views 04/09/2022 TECHNIQUE: Fluoroscopy performed by Dr. Osito Moses. Fluoroscopy time: 4.6 minutes. Cumulative Dose: 86.1 mGy. DAP: 11.9 Gy-cm2. Images: 2. FINDINGS: There are 2 spinal stimulator electrodes seen ascending the posterior spinal canal. The electrode tips are at level of upper thoracic spine. There is no visible kinking or defect of the leads.. An endotracheal tube is suggested with tip above mag. FL/FL guidance in OR IMPRESSION: Fluoroscopy for pain management procedure.
--- NOTE | 2022-04-16 11:57 | PC.NURSE ---
MRSA nasal swab collected 04/09/22 and results negative. Pre-op ordered noted for MRSA nasal swab again prior to procedure, this RN reached out to Dr. Moses via [employer] to confirm repeat MRSA. per Dr. Moses we do not need another MRSA swab prior to this procedure.
[2022-04-16 12:39] LABS: Glucose, Whole Blood 260 mg/dL (60-115)
[2022-04-16] MEDS: Insulin Lispro 100 UNIT/ML 3 ML VIAL SUBCUT ×2 (12:54→17:07)
--- NOTE | 2022-04-16 12:54 | MHC.SHP ---
Pre-Procedural Eval Section A Date of Service: 04/16/22 The patient is an INPATIENT: No Changes since office visit: Yes Patient answered all questions The History & Physical has been completed within 30 days and I have reviewed it.: Yes Section B Chief Complaint: Postlaminectomy syndrome, not elsewhere classified Relevant Family History (Specify if Yes): No Relevant Social History: None Present Medications: see Short Stay Collaborative assessment Medical History: Significant History (CAD) History of Previous Operations: Relevant previous surgery/procedure and date(s) (SCS implant for failed back) Allergies: Allergies Allergy/AdvReac Type Severity Reaction Status Date / Time duloxetine [From Cymbalta] Allergy unknown Verified 03/03/22 15:27 nabumetone Allergy unknown Verified 03/03/22 15:27 penicillin G Allergy unknown Verified 03/03/22 15:27 venlafaxine [From Effexor] Allergy unknown Verified 03/03/22 15:27 Review of Systems Sugical H&P ROS: Negative: Constitution, Cardiovascular and Respiratory and Yes, Specify: Neurological (dizziness) and Gastrointestinal (N/V) Exam Surgical H&P Exam: Normal: HEENT, Normal: Heart and Normal: Lungs Plan Diagnosis/Plan: Unchanged I have reviewed the history and physical and performed a pertinent physical examination on my patient. No changes have occurred unless specified.
[2022-04-16] MEDS: Lactated Ringers 1,000 ML 100 ML IVCONT (12:56)
--- NOTE | 2022-04-16 13:29 | P.BOP_ITS ---
Brief Operative Note Date of Service: 04/16/22 Pre-op diagnosis: Abnormal left sided paresthesia due to SCS lead presence Post-op diagnosis: same Procedure: SCS left lead removal and reimplantation Implants: Nevro HFX system revised Surgeon: Osito Moses MD Anesthesia: GETA Was an It Applications Analyst used for this Procedure?: No Estimated blood loss (mL): 15 Pathology: none sent Condition: stable Disposition: PACU
--- NOTE | 2022-04-16 13:32 | W.PM.OPN ---
Operative Note Operative Note Date of Service: 04/16/22 Narrative: Thoracolumbar spinal cord stimulator lead revision, left side The possible cause of abnormal left-sided paresthesias was discussed with the patient in the preoperative area. Informed consent was obtained for revision of the spinal cord stimulation system, especially the left lead since the course of that lead through the epidural space was considered to be the main cause of his ongoing abnormal paresthesia sensations in the left thoracic paraspinal and shoulder area. After proper consent and identification, the patient was brought to the operating room. After the patient was placed under general anesthesia, he was placed in the prone position. Care was taken during positioning to protect and pad all pressure points. Clindamycin 900 mg was given as preoperative antibiotic prophylaxis. The existing dressings were removed and the wounds from the original placement 1 week earlier were scrubbed. The back was prepped and draped in the usual sterile fashion using iodine solution. The fluoroscope unit was sterilely draped. The wounds were reopened with a 15 blade. The sutures were cut with a combination of scissors and blade. Hemostasis was achieved with electrocautery where required. The midline incision was dissected down to the anchors. The pocket incision was opened to reveal the IPG. The IPG was removed from the pocket and disconnected from the leads. The IPG ports were plugged and the IPG was placed in a vancomycin solution for the duration of the procedure. The leads were then extracted from the pocket over to the midline incision site. The anchors were loosened from their underlying sutures as well as the lead anchoring screws. The left anchor was removed and placed in a vancomycin solution. The right anchor was left in place. The left lead was pulled back under fluoroscopy guidance with gentle traction. No resistance was encountered while removing the left lead. Once the lead was at the T12/L1 level, an attempt was made to redirect it towards the midline but this could not be accomplished. The lead was subsequently removed completely. A 14 gauge introducer straight Touhy needle was then advanced through the T12/L1 interlaminar space using AP and contralateral oblique fluoroscopy guidance and loss of resistance was obtained to air. The left lead was then threaded into the epidural space. AP and lateral fluoroscopy confirmed posterior and midline advancement of the lead. The left lead was then threaded up to the mid T3 vertebral body without significant resistance. The right lead was pulled down slightly to remove kinking in the body of the lead. The top of the right lead was left at the top of T4 vertebral body. The needle was backed out under live fluoroscopy and lead position was reconfirmed. After confirming adequate lead placement, attention was diverted to securing the anchors. The left anchor was retrieved from the vancomycin solution in threaded back on top of the left lead. We used the locking anchors to secure the electrodes down to the prevertebral fascia, tying them down with the 2-0 Tycron sutures on both sides. After securing the anchors, the leads were transferred from the midline to the existing IPG pocket using a blunt tunneling device. The existing tunneling tract was used for this purpose. The IPG was then removed from the vancomycin irrigation solution and the leads were reconnected to the IPG. Adequate impedances were confirmed. The IPG was reinserted into the pocket. The midline wound and the right IPG pocket were then irrigated with copious normal saline containing vancomycin. Hemostasis was attained with electrocautery. After irrigation, the wounds were flooded with a sterile iodine solution for 3 minutes. After suctioning the iodine solution out of the wounds, the wounds were closed using running 2-0 Vicryl for the fascial layer, interrupted 3-0 Vicryl for the deep dermal closure. The IPG pocket skin was closed with 4-0 Vicryl. The skin overlying the midline incision was closed using ayesha. 10 cc of Ropivacaine 0.5% was then injected subcutaneously around the wounds. The IPG wound was dressed with Exofin, Steri-Strips, gauze and Tegaderm. The midline incision was dressed with bacitracin ointment covering the ayesha, Xeroform dressing and Tegaderm. Following the dressings, the patient was flipped supine, woken up, extubated and brought to the PACU in stable condition. He reported resolution of his left-sided abnormal paresthesia in the immediate postoperative. The patient was discharged home in stable condition with further follow-up instructions.
--- NOTE | 2022-04-16 17:01 | HO.POSTANES ---
Post Anesthesia Evaluation Post Anesthesia Evaluation Vital Signs: Vital Signs Temp Pulse Resp BP Pulse Ox O2 Del Method 04/16/22 12:12 97.5 F 97 20 132/90 H 99 Room Air Anesthesia: General Mental Status: Awake Pain Control: Satisfactory Nausea/Vomiting: None Hydration: Adequate Anesthesia-Related Issues: No Anes. Related Issues
[2022-04-16 17:04] LABS: Glucose, Whole Blood 219 mg/dL (60-115)
[2022-04-16 17:47] LABS: Glucose, Whole Blood 221 mg/dL (60-115)
== END 2022-04-16 18:02 | disposition home or self-care (01) ==
PROVIDERS: Visit Provider Internal Medicine
PROC: (CPT 63663; principal; 2022-04-16 12:40)
DX: T85.122A Displacement of implanted electronic neurostimulator of spinal cord electrode (lead), initial encounter (principal); Y75.2 Prosthetic and other implants, materials and neurological devices associated with adverse incidents; Z96.82 Presence of neurostimulator; M96.1 Postlaminectomy syndrome, not elsewhere classified; E11.69 Type 2 diabetes mellitus with other specified complication; R20.2 Paresthesia of skin; M51.24 Other intervertebral disc displacement, thoracic region; M54.14 Radiculopathy, thoracic region; I25.10 Atherosclerotic heart disease of native coronary artery without angina pectoris; Z98.61 Coronary angioplasty status; I25.2 Old myocardial infarction; G47.33 Obstructive sleep apnea (adult) (pediatric); Z79.84 Long term (current) use of oral hypoglycemic drugs; Z79.899 Other long term (current) drug therapy; F11.20 Opioid dependence, uncomplicated; Z88.8 Allergy status to other drugs, medicaments and biological substances; Z88.0 Allergy status to penicillin; Z79.82 Long term (current) use of aspirin
CPT/HCPCS: 63663; 63688; 82947; J2250; J2405; J2795; J3010; J3370

== ENCOUNTER 2022-06-26 09:00 | Outpatient (RCR) | payer OTHER, SELFPAY ==
--- NOTE | 2022-06-03 11:54 | MHC.PT.EP ---
[facility] [place] Office [place] Office [place] Office [address] [phone] F: [phone] F: [phone] F: [phone] F: [phone] Physical Therapy Plan of Care Date of Evaluation: Date of Surgery: Diagnosis: Adhesive capsulitis of R shoulder. Assessment: Pt is a 52 y/o male with long Hx of R shoulder dysfunction and with recent spinal simulator implant is referred to PT R shoulder adhesive capsulitis resulting in decreased tolerance and ability to perform reaching a high shelf, dressing pullovers, carrying objects of weight, reaching his neck and back for hygiene/ dressing, performing heavy HH chores, as well as disturbed sleep secondary to decreased R UE strength and ROM, decreased posture, and pain. Pt is deemed an appropriate candidate to receive skilled PT in order to address his physical limitations to improve his functional ability. Frequency and Duration: The patient will be seen 2 x / wk x 5 wks. Short Term Goals: Initiate HEP. improve baseline pain to <6/10; initial: 8/10. Half-Way Goals: I with HEP. Symmetrical shoulder AROM flexion achieved: initia: R 120; L 160 Pt will be able to reach T11 with functional R IR AROM; initial: R to sacrum, L to T8. Pt will be able to place objects on high shelf with managed Sx. R abduction AROM improved to > 129 degrees; initial: R 90 degrees; L 155. Treatment Plan: Modalities to reduce pain, spasms and effusion. Manual therapy to restore motion and function. Therapeutic exercise to improve strength and flexibility. Neuromuscular re-education for posture and balance. Therapeutic activities to return to functional activities of daily living. Electronically signed by: Wallace Thurston PT. Please sign and return to therapist. Thank you for your referral.
--- NOTE | 2022-09-30 14:48 | MHC.PT.DC ---
[facility] [place] Office [place] Office [place] Office [address] Jackie Baca 140 [facility] [phone] F: [phone] F: [phone] F: [phone] F: [phone] Physical Therapy Discharge Report Diagnosis: Adhesive capsulitis of R shoulder. Date of Surgery: Date of Evaluation: 05/30/22 Date of Discharge: 09/30/22 Treatments to Date: 7 Cancellations to Date: 1 No Shows to Date: Discharge Status: Patient Elected to Stop Recommend MD Follow-up Discharge Summary: Pt did not complete his last therapy apts; at the time he stopped attending he was still in significant pain and not progressing much. He has since returned to ortho for management. Electronically signed by: Wallace Thurston PT. Please sign and return to therapist. Thank you for your referral.
== END 2022-09-30 14:49 | disposition home or self-care (01) ==
LOC: HO.PTCHIC 09:00
PROVIDERS: PCP Internal Medicine; Visit Provider Orthopaedic Surgery
DX: M75.31 Calcific tendinitis of right shoulder (principal)
CPT/HCPCS: 97110; 97161

== ENCOUNTER → 2022-11-07 10:27 | Outpatient (BNVA) | payer OTHER, SELFPAY | PROVIDERS: PCP Internal Medicine; Visit Provider Internal Medicine | DX: M96.1 Postlaminectomy syndrome, not elsewhere classified (principal); M54.50 Low back pain, unspecified; G58.8 Other specified mononeuropathies | CPT/HCPCS: 20553 ==

== ENCOUNTER 2022-11-13 09:00 | Outpatient (RCR) | payer OTHER, SELFPAY | END 2022-12-08 11:01 | disposition home or self-care (01) | LOC: HO.PTCHIC 09:00 | PROVIDERS: PCP Internal Medicine; Visit Provider Orthopaedic Surgery | DX: M75.01 Adhesive capsulitis of right shoulder (principal) | CPT/HCPCS: 97110; 97140; 97162 ==

== ENCOUNTER → 2023-02-13 08:57 | Outpatient (BNVA) | payer OTHER, SELFPAY | PROVIDERS: PCP Internal Medicine; Visit Provider Internal Medicine ==

== ENCOUNTER 2023-06-01 09:47 | Outpatient (AMB) | payer OTHER, SELFPAY ==
[2023-06-01 09:53] VITALS: BP 126/76; PULSE 94; RESP 14; O2SAT 96; BMI 29.9
--- NOTE | 2023-06-01 09:53 | A.OFFVIS_ITS ---
Intake Vital Signs 06/01/23 09:53 Height 6 ft 1 in Weight 227 lb BMI 29.9 BP 126/76 Blood Pressure Location Rt brachial Position Sitting Respiration 14 Pulse 94 Pulse Source Pulse Oximeter Pulse Oximetry (%) 96 Oxygen Delivery Method Room Air Intake Visit Reasons: Back pain Allergies duloxetine [From Cymbalta] Allergy (Verified 06/01/23 09:55) unknown nabumetone Allergy (Verified 06/01/23 09:55) unknown penicillin G Allergy (Verified 06/01/23 09:55) unknown venlafaxine [From Effexor] Allergy (Verified 06/01/23 09:55) unknown Medication List - Last Reconciled 06/01/23 by Hilda Kong LPN aspirin (Adult Aspirin Regimen) 81 mg PO DAILY carvedilol 3.125 mg PO BID diazepam 5 mg PO BID PRN empagliflozin (Jardiance) 25 mg PO DAILY glipizide 10 mg PO BID isosorbide mononitrate ER 30 mg PO DAILY lidocaine 5% (Lidoderm) 1 patch transdermal DAILY methocarbamol 500 mg PO TID pantoprazole (Protonix) 40 mg PO DAILY pregabalin 200 mg PO BID rosuvastatin 40 mg PO DAILY zolpidem 10 mg PO BEDTIME PRN 30 days HPI Back pain HPI Details 53-year-old male who presents today to t he office for a follow-up on back pain. Overall symptoms continue to be better since the SCS placement, but he has muscle tightness on the left side. He continues to have episodes of exacerbation, especially with prolonged activities such as driving or home ADLs. He was recently seen in the ED for back pain after long road trip. He drove 16 hours straight to [place] to visit his oldest son and newest granddaughter, and then drove back about 18 hours to home. He is currently taking valium prescribed by his PCP for helping him sleep. Intravenous hydromorphone appears to be helpful for his symptoms for a brief period of time. Oral hydromorphone has not been helpful in relieving the symptoms. On his last visit, we had decided to proceed with a trial of left lumbar medial branch nerve stimulator trial which was denied by insurance. He is interested in proceeding with longer-term treatment options including intrathecal drug delivery if possible. Past Procedures: 11/07/2022: Trigger point injection: 50% relief for 1-2 days 04/16/22: SCS Revision ? Significant pain relief for thoracic spine pain. Overall, 70% relief to date. [facility] Medical History Colonoscopy refused Herniated thoracic disc without myelopathy Intercostal neuralgia Low back pain with sciatica BARRY (obstructive sleep apnea) Post laminectomy syndrome Rib pain Thoracic radiculopathy due to diabetes mellitus Type 2 diabetes mellitus Surgical History Presence of stent in coronary artery Social History Patient Tobacco Use Status: Never used Tobacco Second Hand Smoke Exposure: No Substance Use Type: Marijuana Review of Systems Const All systems reviewed & are unremarkable except as noted in HPI and below Physical Exam Vital Signs: Last Vital Signs Pulse 94 06/01/23 09:53 Resp 14 06/01/23 09:53 BP 126/76 06/01/23 09:53 Pulse Ox 96 06/01/23 09:53 Oxygen Delivery Method Room Air 06/01/23 09:53 BMI result Body Mass Index 29.9 General: Appears afebrile. Alert and oriented. Mood and affect appropriate. Follows and participates in conversation appropriately. Respiratory effort is unlabored. Able to transition from sit to stand unassisted. Ambulates with bilaterally normal heel strike and toe off. Results Reviewed Results Reviewed: Prior plain films show SCS battery in the right iliac fossa. The left iliac fossa is available for a potential pump implant with a target spine interspace at L3-4. Assessment & Plan Assessment & Plan (1) Intractable low back pain: Code(s): M54.59 - Other low back pain Plan Will schedule him for ITDD with hydromorphone, Left L3-4 interspace. Discussed the risks and benefits of the procedure with the patient in detail. All questions were answered. The patient is on board with the plan. Justification for interventional therapy: ? Patient with average pain > 6/10 ? Patient has exhausted conservative therapy ? Continues to have intractable back pain despite spinal cord stimulator implant Scribed for Dr. Moses by Santi Quiroz, biomedical engineer, on 06/01/2023. I, Dr. Josué, have personally reviewed and agree with the information entered by the scribe. Coding Level of Care Code Est Pt Level 3 (99275) Diagnoses Intractable low back pain M54.59
== END 2023-06-01 10:10 | disposition home or self-care (01) ==
PROVIDERS: PCP Internal Medicine; Visit Provider Internal Medicine
DX: M54.59 Other low back pain (principal); Z96.82 Presence of neurostimulator
CPT/HCPCS: 99213

== ENCOUNTER → 2023-06-01 09:47 | Outpatient (BNVA) | payer OTHER, SELFPAY | PROVIDERS: PCP Internal Medicine; Visit Provider Internal Medicine ==

== ENCOUNTER 2023-09-28 09:59 | Outpatient (AMB) | payer OTHER, SELFPAY ==
--- NOTE | 2023-09-28 10:07 | MHC.OFFVIS ---
Intake Vital Signs 09/28/23 10:08 Height 6 ft 1 in Weight 220 lb BMI 29.0 BP 124/69 Blood Pressure Location Lt brachial Position Sitting Respiration 12 Pulse 93 Pulse Source Pulse Oximeter Pulse Oximetry (%) 99 Oxygen Delivery Method Room Air Intake Visit Reasons: Follow Up/Back Pain Allergies duloxetine [From Cymbalta] Allergy (Verified 09/28/23 10:10) unknown nabumetone Allergy (Verified 09/28/23 10:10) unknown penicillin G Allergy (Verified 09/28/23 10:10) unknown venlafaxine [From Effexor] Allergy (Verified 09/28/23 10:10) unknown HPI Follow Up/Back Pain HPI Details 53-year-old male who presents today to the office for a follow-up back pain. He has not received any calls for psychological evaluations for the pain pump. He reports muscle spasms and tightness around his rib region. He has difficulty moving or doing activities. He states that the stimulator is not providing any relief. He has been mostly keeping it turned off. He has reached out to a device district sales representative to change the device program, but it has not been reprogrammed. He reports significant memory and cognitive issues with the medications that he was taking including muscle relaxants as well as pregabalin. He has since stopped all his medications and his mental clarity has improved. Past Procedures: 11/07/2022: Trigger point injection: 50% relief for 1-2 days 04/16/22: SCS Revision ? Significant pain relief for thoracic spine pain. Overall, 70% relief to date. 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 Low back pain with sciatica BARRY (obstructive sleep apnea) Post laminectomy syndrome Rib pain Thoracic radiculopathy due to diabetes mellitus Type 2 diabetes mellitus Surgical History Presence of stent in coronary artery Social History Patient Tobacco Use Status: Never used Tobacco Second Hand Smoke Exposure: No Substance Use Type: Marijuana Review of Systems Const All systems reviewed & are unremarkable except as noted in HPI and below Physical Exam Vital Signs: Last Vital Signs Pulse 93 09/28/23 10:08 Resp 12 09/28/23 10:08 BP 124/69 09/28/23 10:08 Pulse Ox 99 09/28/23 10:08 Oxygen Delivery Method Room Air 09/28/23 10:08 BMI result Body Mass Index 29.0 General: Appears afebrile. Alert and oriented. Mood and affect appropriate. Follows and participates in conversation appropriately. Respiratory effort is unlabored. Able to transition from sit to stand unassisted. Ambulates with bilaterally normal heel strike and toe off. Results Reviewed Results Reviewed: No imaging is available for review. Assessment & Plan Assessment & Plan (1) Intractable low back pain: Code(s): M54.59 - Other low back pain Plan We will schedule an appointment with [employer] device representatives in the office for reprogramming the SCS device. We will also reach out to [employer] to check the status of his psychological evaluation. We will schedule him for a L3-L4 intrathecal drug delivery trial with hydromorphone for intractable back pain once we have received the psychologic evaluation. Discussed the risks and benefits of the procedure with the patient in detail. All questions were answered. The patient is on board with the plan. Justification for interventional therapy: ? Patient with average pain >8/10 ? Patient has exhausted conservative therapy Scribed for Dr. Moses by Santi Quiroz, medical claims processor, on 09/28/2023. I, Dr. Moses, have personally reviewed and agree with the information entered by the scribe. Coding Level of Care Code Est Pt Level 3 (86328) Diagnoses Intractable low back pain M54.59
[2023-09-28 10:08] VITALS: BP 124/69; PULSE 93; RESP 12; O2SAT 99; BMI 29.0
== END 2023-09-28 10:54 | disposition home or self-care (01) ==
PROVIDERS: PCP Internal Medicine; Visit Provider Internal Medicine
DX: M54.59 Other low back pain (principal)
CPT/HCPCS: 99213

== ENCOUNTER → 2023-09-28 09:59 | Outpatient (BNVA) | payer OTHER, SELFPAY | PROVIDERS: PCP Internal Medicine; Visit Provider Internal Medicine ==

== ENCOUNTER → 2023-10-12 08:59 | Outpatient (BNVA) | payer OTHER, SELFPAY | PROVIDERS: PCP Internal Medicine; Visit Provider Anesthesiology ==

== ENCOUNTER 2024-10-17 09:14 | Outpatient (AMB) | payer OTHER, SELFPAY ==
--- NOTE | 2024-10-17 09:15 | MHC.OFFVIS ---
Vital Signs 10/17/24 09:17 Height 6 ft 1 in Weight 218 lb BMI 28.8 BP 135/76 Blood Pressure Location Lt brachial Position Sitting Respiration 16 Pulse 94 Pulse Source Pulse Oximeter Pulse Oximetry (%) 99 Oxygen Delivery Method Room Air Intake Visit Reasons: Nerve Pain In Back Firewall Engineer Required: No Allergies duloxetine [From Cymbalta] Allergy (Verified 10/17/24 09:18) unknown nabumetone Allergy (Verified 10/17/24 09:18) unknown penicillin G Allergy (Verified 10/17/24 09:18) unknown venlafaxine [From Effexor] Allergy (Verified 10/17/24 09:18) unknown Medication List - Last Reconciled 10/17/24 by Hilda Kong LPN aspirin (Adult Aspirin Regimen) 81 mg PO DAILY carvedilol 3.125 mg PO BID diazepam 5 mg PO BID PRN empagliflozin (Jardiance) 25 mg PO DAILY glipizide 10 mg PO BID isosorbide mononitrate ER 30 mg PO DAILY lidocaine 5% (Lidoderm) 1 patch transdermal DAILY methocarbamol 500 mg PO TID pantoprazole DR (Protonix) 40 mg PO DAILY rosuvastatin 40 mg PO DAILY zolpidem 10 mg PO BEDTIME PRN 30 days HPI HPI Nerve Pain In Back: Details: History of Present Illness The patient is a 54-year-old male presenting with chronic thoracolumbar back pain. Persistent pain is localized from the bottom of the ribcage with radiation between ribs, associated with muscle spasms and severe nerve pain. Pain management remains suboptimal despite a thoracolumbar spinal cord stimulator. Adjustments to stimulator settings are hindered by communication issues with the device management company. The patient has previously tried diazepam with minimal effect and has ceased other muscle relaxants due to ineffectiveness. Functional limitations are significant, with muscle spasms impeding daily activities. Past interventions with a proposed psychology assessment remain unfulfilled. Pain Description - Onset: Chronic - Location: Thoracolumbar region, emanating from below ribcage - Quality: Radiating, nerve-like pain - Radiation: Between ribs - Exacerbating factors: Physical activity leading to muscle spasms - Relieving factors: None reported - Interference with activities: Yes, notably with household tasks causing prolonged immobility Physical Exam Results Pain Management - Affect: Reports feeling useless and limited due to spasms - Analgesia: Thoracolumbar spinal cord stimulator settings; reports they are too high - Adverse Effects: Stimulation too high for current needs; diazepam minimally effective - Activities of Daily Living: Severely impacted, leading to hours of inactivity - Aberrant Drug Related Behaviors: None reported [facility] Medical History Colonoscopy refused Herniated thoracic disc without myelopathy Intercostal neuralgia Low back pain with sciatica BARRY (obstructive sleep apnea) Post laminectomy syndrome Rib pain Thoracic radiculopathy due to diabetes mellitus Type 2 diabetes mellitus Surgical History Presence of stent in coronary artery Social History Patient Tobacco Use Status: Never used Tobacco Second Hand Smoke Exposure: No Substance Use Type: Marijuana Physical Exam Vital Signs: Last Vital Signs Pulse 94 10/17/24 09:17 Resp 16 10/17/24 09:17 BP 135/76 10/17/24 09:17 Pulse Ox 99 10/17/24 09:17 Oxygen Delivery Method Room Air 10/17/24 09:17 BMI result Body Mass Index 28.8 Assessment & Plan Assessment & Plan (1) Intractable low back pain: Code(s): M54.59 - Other low back pain Category: Medical (2) Post laminectomy syndrome: Comment: Status post [employer] SCS placement (T4-T6) Code(s): M96.1 - Postlaminectomy syndrome, not elsewhere classified Category: Medical Plan Plan Further management of chronic thoracolumbar pain involves continual adjustment of the spinal cord stimulator, in coordination with device management. Exploration of intrathecal drug delivery was discussed, dependent on insurance approval, which can include necessary opioid and muscle relaxant combination for persistant pain and muscle spasms. A psychological assessment will be booked as part of approval process. The patient is informed about all procedures, risks, and follow-up steps and will proceed based on insurance support and subsequent consultations. Patient was informed and verbally consented to the use of an ambient scribe for clinic note documentation during this visit. Discussion Notes During the consultation, I discussed the challenges in managing the patient's chronic thoracolumbar pain. The possibility of using an intrathecal drug delivery system was conveyed, highlighting its experimental nature in this context and clarifying the procedures of implantation and removal, should they be necessary. I addressed insurance coverage concerns and emphasized the importance of gradual pain management improvement. The patient was informed about potential side effects and the risk/benefit profile of a pain pump. We agreed to follow up on progress and any developments concerning insurance authorizations. Patient Instructions - Contact device management to facilitate stimulator setting adjustments. - Anticipate a follow-up assessment for a potential pain pump. - Schedule and attend psychological assessment once insurance and appointments are confirmed. - Notify us of any significant changes in pain or new symptoms. - Maintain a pain diary to track fluctuations and note any triggers or relieving factors. Medications: Discontinued methocarbamol Discontinued Reason: Patient no longer taking 500 mg PO TID 90 tabs 0RF Coding Level of Care Code Est Pt Level 4 (81144) Diagnoses Intractable low back pain M54.59 Post laminectomy syndrome M96.1
[2024-10-17 09:17] VITALS: BP 135/76; PULSE 94; RESP 16; O2SAT 99; BMI 28.8
== END 2024-10-17 09:34 | disposition home or self-care (01) ==
PROVIDERS: PCP Internal Medicine; Visit Provider Internal Medicine
DX: M54.59 Other low back pain (principal); M96.1 Postlaminectomy syndrome, not elsewhere classified
CPT/HCPCS: 99214

== ENCOUNTER → 2024-10-17 09:14 | Outpatient (BNVA) | payer OTHER, SELFPAY | PROVIDERS: PCP Internal Medicine; Visit Provider Internal Medicine ==

== ENCOUNTER 2024-12-15 06:04 | Outpatient (REF) | payer OTHER, SELFPAY ==
--- NOTE | ~2024-12-15 | FL_ITS ---
EXAMINATION: XR FLUOROSCOPY WITH IMAGES CLINICAL INFORMATION: Lumbar pain management procedure. COMPARISON: None available. TECHNIQUE: Fluoroscopy provided to: Dr. Moses Fluoroscopy time: 24.6 seconds DAP: 1.8174 Gycm2 Images: 2 FINDINGS: 2 fluoroscopic spot images obtained during lumbar pain management procedure. Please refer to the full procedural report for details. FL/FL guidance in treatment room IMPRESSION: Fluoroscopic guidance. Electronically signed by: Boston Charles MD 12/15/2024 02:09 PM EDT
== END 2024-12-15 06:05 | disposition home or self-care (01) ==
LOC: CF 06:04
PROVIDERS: Visit Provider Internal Medicine
DX: M54.59 Other low back pain (principal); M96.1 Postlaminectomy syndrome, not elsewhere classified; G89.29 Other chronic pain
CPT/HCPCS: 62323; J2003; Q9967

== ENCOUNTER 2024-12-15 09:16 | Outpatient (AMB) | payer OTHER, SELFPAY ==
[2024-12-15 09:27] VITALS: BP 95/66; PULSE 85; RESP 16; O2SAT 100
--- NOTE | 2024-12-15 09:27 | MHC.OFFVIS ---
Vital Signs 12/15/24 09:27 12/15/24 10:10 BP 95/66 147/79 H Blood Pressure Location Lt brachial Lt brachial Position Sitting Supine Respiration 16 16 Pulse 85 82 Pulse Source Pulse Oximeter Pulse Oximeter Pulse Oximetry (%) 100 95 Oxygen Delivery Method Room Air Room Air Intake Visit Reasons: ITDD trial w/ dilaudid Management Technician Required: No Allergies duloxetine [From Cymbalta] Allergy (Verified 12/15/24 09:29) unknown nabumetone Allergy (Verified 12/15/24 09:29) unknown penicillin G Allergy (Verified 12/15/24 09:29) unknown venlafaxine [From Effexor] Allergy (Verified 12/15/24 09:29) unknown Medication List - Last Reconciled 12/15/24 by Hilda Kong LPN aspirin (Adult Aspirin Regimen) 81 mg PO DAILY carvedilol 3.125 mg PO BID diazepam 5 mg PO BID PRN empagliflozin (Jardiance) 25 mg PO DAILY glipizide 10 mg PO BID isosorbide mononitrate ER 30 mg PO DAILY lidocaine 5% (Lidoderm) 1 patch transdermal DAILY pantoprazole DR (Protonix) 40 mg PO DAILY rosuvastatin 40 mg PO DAILY zolpidem 10 mg PO BEDTIME PRN 30 days HPI HPI ITDD trial w/ dilaudid: Details: Patient presents for scheduled procedure. Denies any recent cough, cold, infection, fever or other significant changes in medical history since last office visit. 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 Low back pain with sciatica BARRY (obstructive sleep apnea) Post laminectomy syndrome Rib pain Thoracic radiculopathy due to diabetes mellitus Type 2 diabetes mellitus Surgical History Presence of stent in coronary artery Social History Patient Tobacco Use Status: Never used Tobacco Second Hand Smoke Exposure: No Substance Use Type: Marijuana Physical Exam Vital Signs: Last Vital Signs Pulse 82 12/15/24 10:10 Resp 16 12/15/24 10:10 BP 147/79 H 04/10/25 10:10 Pulse Ox 95 04/10/25 10:10 Oxygen Delivery Method Room Air 12/15/24 10:10 Office Procedures Cervical/Thoracic Facet Inj Procedure code (CPT) selection complete Details: Intrathecal Drug Delivery Trial - -11/08 After obtaining written consent, pre-procedure blood pressure and heart rate were stable and recorded in the nursing record. The patient was placed in the prone position. The lumbar area was widely prepped with chloraprep and draped in sterile fashion. Fluoroscopic guidance was used to identify the desired interlaminar space and for needle placement. Subcutaneous 0.5% lidocaine was used to anesthetize the skin overlying the target. A 22-gauge rena needle was advanced to the intrathecal space under fluoroscopic AP and contralateral oblique views. CSF flow was confirmed with positive clear aspiration. Next 3 ml containing 60 mcg hydromorphone was administered intrathecally with no pain elicited on injection. The needle was removed, skin cleansed and a sterile bandage was applied. The patient tolerated the procedure well and no complications were encountered. Following the procedure the patient's vital signs were stable. He was monitored in recovery for 1 hour. The patient was discharged home in good condition with post-procedural instructions. Time Out: Immediately prior to the procedure, the following was verbally confirmed that there is a signed consent form and that the correct patient, planned procedure, site and side are consistent with documentation and that necessary equipment and/or blood products are available prior to the start of the case. Complications: none EBL: <1 cc 80427 - Trial Procedure code (CPT) selection complete Assessment & Plan Assessment & Plan (1) Intractable low back pain: Code(s): M54.59 - Other low back pain Category: Medical Plan Patient is status post ITDD trial with hydromorphone. Patient tolerated procedure well and was discharged home in stable condition with discharge instructions. All questions were answered. We will follow-up via telephone or in clinic to assess response to therapy. A follow-up appointment was made during today's visit. Orders: Orders FL guidance in treatment room Today M54.59 - Other low back pain Coding Level of Care Code Procedure Only Diagnoses Intractable low back pain M54.59 CPT Codes Intraethecal Drug Delivery System - CPT: 45402 - Trial ([id number])
--- OUTSIDE RECORDS SUMMARY | 2024-12-15 10:00 | XMS_ITS | Clinical Summary ---
Author Organization [facility] Address [address] [place] [address] Care Team Providers Care Wireless Sales Representative Name Role Phone Alejandro Mcfadden Primary Care Provider [phone] Allergies Active Allergy Reactions Criticality Noted Date Comments Duloxetine Unknown 09/26/2021 Meloxicam Unknown 09/26/2021 Penicillins Anaphylaxis,Unknown High 09/12/2021 Venlafaxine Chest pain,Unknown 09/12/2021 Medications ammonium lactate (LAC-HYDRIN) 12% lotion every 12 (twelve) hours. Active aspirin 81 mg capsule every 24 hours. Acti ve carvediloL (COREG) 3.125 mg tablet every 12 (twelve) hours. Active clopidogreL (Plavix) 75 mg tablet every 24 hours. Acti ve HYDROmorphone PF (Dilaudid, PF,) 2 mg/mL syringe every 6 (six) hours. Active flash glucose scanning reader (FreeStyle Azra 14 Day [place]) misc FreeStyle Azra 14 Day [place] Active flash glucose sensor (FreeStyle Azra 14 Day Sensor) kit FreeStyle Azra 14 Day Sensor kit Active isosorbide mononitrate ER (IMDUR) 30 mg tablet every 24 hours. Acti ve pregabalin (LYRICA) 75 mg capsule every 12 (twelve) hours. Active cyclobenzaprine (FLEXERIL) 5 mg tablet Take 5 mg by mouth 3 times a day. 01/18/20 Active Jardiance 10 mg tablet Take 10 mg by mouth once a day. 06/29/20 Active glipiZIDE (GLUCOTROL) 5 mg tablet Take 5 mg by mouth. 07/29/20 Active HYDROmorphone (DILAUDID) 2 mg tablet 09/02/20 Active HYDROmorphone (Dilaudid) 2 mg tablet Take 2 mg by mouth. 08/19/20 Active insulin glargine (Lantus Solostar U-100 Insulin) 100 unit/mL (3 mL) insulin pen Lantus Solostar U-100 Insulin 100 unit/mL (3 mL) subcutaneous pen INJECT 45 UNITS SUBCUTANEOUSLY EVERY DAY AT BEDTIME Active insulin lispro (HumaLOG KWIKPEN) 100 unit/mL insulin pen Humalog KwikPen (U-100) Insulin 100 unit/mL subcutaneous INJECT UP TO 16 UNITS SUBCUTANEOUSLY THREE TIMES A DAY WITH MEALS PER SLIDING SCALE Active isosorbide mononitrate ER (IMDUR) 30 mg tablet 09/11/19 22 Active lidocaine (XYLOCAINE) 5% ointment 07/29/20 21 Active meloxicam (MOBIC) 15 mg tablet Take 15 mg by mouth once a day. 03/07/20 21 Active methylPREDNISol one (MEDROL DOSEPACK) 4 mg tablet Take by mouth. 01/26/20 21 Active nortriptyline (PAMELOR) 10 mg/5 mL solution SMARTSI Milliliter(s) By Mouth Every Night 03/20/20 Active oxyCODONE IR (ROXICODONE) 5 mg tablet 07/29/[address] (PROTONIX) 40 mg tablet pantoprazole 40 mg tablet,delayed release 04/09/20 Active pregabalin (LYRICA) 100 mg capsule 08/19/20 Active rosuvastatin 40 mg capsule, sprinkle Take 40 mg by mouth. 03/26/20 Active sildenafiL (VIAGRA) 50 mg tablet sildenafil 50 mg tablet TAKE 1 TABLET BY MOUTH EVERY DAY 1 HOUR BEFORE SEXUAL ACTIVITY Active zolpidem (AMBIEN) 10 mg tablet Take 10 mg by mouth nightly as needed. 07/18/20 21 Active Active Problems Problem Noted Date Diagnosed Date Chronic bilateral thoracic back pain 09/26/2021 Social History Tobacco Use Types Packs/Day Years Used Date Smoking Tobacco: Never Assessed Sex and Gender Information Value Date Recorded Sex Assigned at Not on file Legal Sex Male 11:01 AM EST Gender Identity Not on file Sexual Orientation Not on file Last Filed Vital Signs Vital Sign Reading Time Taken Comments Blood Pressure - - Pulse - - Temperature - - Respiratory Rate - - Oxygen Saturation - - Inhaled Oxygen Concentration - - Weight 94.9 kg (209 lb 3.2 oz) 09/26/2021 7:45 A M EST Height 181.1 cm (5' 11.3 ) 09/26/2021 7:45 AM ES T Body Mass Index 28.93 09/26/2021 7:45 AM EST Plan of Treatment Health Maintenance Due Date Last Done Comments Cologuard 1968 Colon Cancer Screening 1968 Colonoscopy 1968 FOBT / Fit Test 1968 HIV Screening 1968 Sigmoidoscopy 1968 Hepatitis B Vaccines (1 of 3 - 19+ 3-dose series) 1987 Pneumococcal Vaccine: 50+ Ye ars (2 of 2 - PCV) 2018 05/26/2017 Zoster Vaccines (1 of 2) 2018 Alcohol/Substance Use Screening 09/07/2024 DTaP,Tdap,and Td Vaccines (2 - Td or Tdap) 05/07/2025 05/07/2015 Influenza Vaccine (Season Ended) 2025 07/24/2021, 07/24/2021, 05/31/2019, Additional history exists RSV Vaccine (60+ years old a nd patients) (1 - 1-dose 75+ series) 2043 Insurance Care Teams Wireless Sales Representative Relationship Specialty Start Date End Date Alejandro Mcfadden [facility] [place] [address] PCP - General Internal Medicine 09/18/21
--- OUTSIDE RECORDS SUMMARY | 2024-12-15 10:00 | XMS_ITS ---
Author Organization [facility] Address [address] [place] [address] Care Team Providers Care Supervisor Ornamental Ironworking Name Role Phone Lesa GUTIERREZ, Alejandro Primary Care Provider Unavailab Michael Bender Unavailable [phone] Encounters Encounter Location Date Provider Diagnosis [facility] [address] [id number] 04/20/2024 Michael Salguero Plan Of Treatment No Information Progress Notes * Dereck JIMENEZ EDOB: [birth year] (54 yo M)Acc No.[id number]:04/20/2024 Progress Note Patient:?Dereck JIMENEZ Provider:?Michael Salguero DPM :1970???Age:53 Y???Sex:Male Javy e:04/20/2024 Address:[address] [place], [place] [id number] Pcp:Alejandro Mcfadden MD Subjective: * Chief Complaints: * ??? * Medical History:? Objective: * Vitals:? Assessment: Plan: * Treatment: * Images: * The named appointment provid er may or may not be the originator of this progress note, and it is not deemed complete until electronically signed by the appointment provider. Sign off status: Pending * Provider:?Michael Salguero DPM Date:?2023 Generated for Lenny westfall/Stephanie/eTransmitting on:?12/15/2024 10:00 AM EDT
--- OUTSIDE RECORDS SUMMARY | 2024-12-15 10:00 | XMS_ITS | Data Portability ---
Author Organization [facility], PAIN OFFICE Address [address] [address] Care Team Providers Care Primary Therapist Name Role Phone NICOLASA ROMERO Primary Care Provider [phone] Assessment Encounter Date Assessment Date Assessment LastModified by Organization Details LastModified Time 03/23/2020 03/23/2020 Dereck Moses is a 49 year old man with complaints of mid back pain , right sided radiating into chest and abdomen. He has poorly controlled diabetes. He has features of diabetic mononeuropathy. I had a long discussion with Mr. Moses about the importance of glucose control. I recommend an endocrinology follow up. He needs blood glucose monitoring with Azra/ dexacom system and then may be an insulin pump. He has trialed membrane stabilizers with side effects. I do not recommend steroid injections as they have the potential to increase blood glucose levels further in poorly controlled diabetics. I also recommend muscle strengthening with a home exercise program or formal physical therapy. [email or web address] Not available 03/30/2020 11:04:31 Plan of Treatment Reminders Order Date Submit Date Provider Last Modified By Organization Details Last Modified Time Details Appointments None record ed. Lab None record ed. Referral None record ed. Procedures None record ed. Surgeries None record ed. Imaging None record ed. Medication Orders None record ed. Patient TargetsNo targets recorded. Patient Instructions Encounter Date Encounter Id Patient Instructions Last Modified By Organization Details Last Modified Time 03/23/2020 [id number] He was advised against bed rest lasting longer than four days and to continue activities as tolerated. [email or web address] Not available 03/30/2020 11:04:41 Reason for Referral None Reported. Problems Name Problem SNOMED Code Status Onset Date Resolution Date Notes Provider Name and Address Organization Details Recorded Time Thoracic radiculopathy 89893541 Active Jessica prince MD [address] , [address], [place], [address], [place] [facility] 0 08:59:08 Thoracic radiculopathy due to diabetes mellitus 830112324 Active Jessica prince MD [address] , [address], [place], [address], [place] [facility] 0 10:27:45 Problem Notes None recorded. Procedures Surgical History Date Name Laterality Status Provider Name and Address Organization Details Recorded Time Back Surgery completed Jessica Canales MD [address] [facility] , [address], [place], [address], [place] [facility] 03/23/2020 09:04:31 Shoulder joint surgery completed Jessica Canales MD [address] [facility] , [address], [place], [address], [place] [facility] 03/23/2020 09:04:55 Knee Surgery completed Jessica Canales MD [address] [facility] , [address], [place], [address], [place] [facility] 03/23/2020 09:05:19 placement of stent in cardiac conduit completed Jessica Canales MD [address] [facility] , [address], [place], [address], [place] [facility] 03/23/2020 09:05:41 Imaging Results None recorded. Procedure Notes None recorded. Medical Equipment None Reported. Allergies Allergen ID Allergen Name Allergen Category Reaction Reaction Severity Criticality Documentation Date Start Date Code Code System Note Provider Name and Address Organization Details Recorded Time 54778 Product containin g penicilli n (product) medicatio n anaphylax is Not available Not available 03/23/2020 86774 8001 SNOMED Jessica prince MD [address] , [address], [place], [address], [place] [facility] 0 08:54:07 91711 nabumeton e medicatio n Not available Not available Not available 03/23/2020 80130 RxNorm Jessica prince MD [address] [facility] , [address], [place], [address], [place] [facility] 0 08:54:20 60662 Effexor medicatio n chest pain Not available Not available 03/23/2020 20467 2 RxNorm Jessica prince MD [address] , [address], [place], [address], [place] [facility] 0 08:54:34 15877 Cymbalta medicatio n Not available Not available Not available 03/23/2020 76970 4 RxNorm stoma ch pain Jessica prince MD [address] , [address], [place], [address], [place] [facility] 0 08:55:33 Medications Name Sig Start Date Stop Date Status Note LastModified by Organization Details LastModified Time venlafaxine ER 37.5 mg capsule,ext ended release 24 hr 03/23 completed Not Available Not Available Not Available venlafaxine ER 75 mg capsule,ext ended release 24 hr 03/23 completed Not Available Not Available Not Available tizanidine 2 mg tablet 03/23 completed Not Available Not Available Not Available sildenafil 50 mg tablet TAKE 1 TABLET BY MOUTH EVERY DAY 1 HOUR BEFORE SEXUAL ACTIVITY active Not Available Not Available No t Available tizanidine 4 mg tablet 03/23 completed Not Available Not Available Not Available topiramate 25 mg tablet 03/23 completed Not Available Not Available Not Available clopidogrel 75 mg tablet TAKE 1 TABLET BY MOUTH EVERY DAY 03/23 completed Not Available Not Available Not Available pantoprazol e 40 mg tablet,peewee yed release TAKE 1 TABLET BY MOUTH EVERY DAY; PLEASE REQUEST ADDITIONA L REFILLS AT YOUR OFFICE VISIT active Not Available Not Available No t Available lidocaine 5 % topical patch APPLY 1 PATCH TO AFFECTED AREA. WEAR FOR 12 HOURS THEN REMOVE FOR 12 HOURS. REPEAT DAILY. active Not Available Not Available No t Available gabapentin 300 mg capsule TAKE 1 CAPSULE BY MOUTH EVERY DAY FOR 1 DAY THEN TAKE 1 CAPSULE TWO TIMES A DAY FOR 1 DAY THEN TAKE 1 CAPSULE THREE TIMES A DAY THEREAFTE R 03/23 completed Not Available Not Available Not Available diazepam 5 mg tablet TAKE 1 TABLET BY MOUTH EVERY DAY AT BEDTIME FOR 5 DAYS 03/23 completed Not Available Not Available Not Available cyclobenzap rine 5 mg tablet TAKE 1 TABLET BY MOUTH THREE TIMES A DAY FOR 7 DAYS 03/23 completed Not Available Not Available Not Available rosuvastati n 5 mg tablet active Not Available Not Available Not Available duloxetine 60 mg capsule,del ayed release 03/23 completed Not Available Not Available Not Available pregabalin 75 mg capsule 03/23 completed Not Available Not Available Not Available Lantus Solostar U-100 Insulin 100 unit/mL (3 mL) subcutaneou s pen INJECT 45 UNITS SUBCUTANE OUSLY EVERY DAY AT BEDTIME active Not Available Not Available No t Available Humalog KwikPen (U-100) Insulin 100 unit/mL subcutaneou s INJECT UP TO 16 UNITS SUBCUTANE OUSLY THREE TIMES A DAY WITH MEALS PER SLIDING SCALE active Not Available Not Available No t Available diclofenac 1 % topical gel APPLY 2 GRAMS TOPICALLY TO AFFECTED AREA(S) FOUR TIMES A DAY FOR 7 DAYS 03/23 completed Not Available Not Available Not Available Readi-Cat 2 2 % (w/v) oral suspension 03/23 completed Not Available Not Available Not Available FreeStyle Azra 14 Day [place] active Not Available Not Available N ot Available FreeStyle Azra 14 Day Sensor kit active Not Available Not Available Not Available Vitals Date Recorded Body height Body mass index (BMI) Body weight Heart rate Oxygen saturation Oxygen saturation in Arterial blood by Pulse oximetry Pain severity - 0-10 verbal numeric rating [Score] - Reported Systolic blood pressure Diastolic blood pressure Provider Name and Address Organization Details Last Updated DateTime 0 185.42 cm 28.9 kg/m2 02059.7 3 g 81 /min 99 % 99 % 5 120 mm[Hg] 75 mm[Hg] Jessica prince MD [address] , [address], [place], [address], [place] [facility] 0 11:05:35 Social History Question Answer Notes LastModified by Organizat ion Details LastModified Time Tobacco Smoking Status Never Smoker Jessica Canales MD [address] , [address], [place], [address], [place] [facility] 03/23/2020 09:00:03 What Is Your Level Of Alcohol Consumption? Moderate Information not available 03/23/2020 Which Illicit Or Recreational Drugs Have You Used? None Marijuana Edibles Information not available 03/23/2020 Education 12 Information n ot available 03/23/2020 What Is Your Occupation? [employer] Information not available 03/23/2020 Live Alone Or With Others? With Others Information not available 03/23/2020 Marital Status Informati on not available 03/23/2020 Sex: Unknown Functional Status None recorded. Mental Status None recorded. Family History Relationship Description Onset Age of this Age Resolved Age Notes LastModified by Organization Details LastModified Time Mother Diabetes mellitus [email or web address] Not available 03/07 08:59:45 Medical History Condition Response Anxiety Disorder Y Diabetes Y Coronary Artery Disease Y Neuropathy/Neuralgia Y Arthritis Y GERD/Reflux Y High Cholesterol Y Hypertension Y Past Encounters Encounter ID Performer Location Encounter Start Date Encounter Closed Date Diagnosis/Indication Diagnosis SNOMED-CT Code Diagnosis ICD10 Code Diagnosis Note [id number] Jessica Canales MD PAIN OFFICE [address] [place] [address] 03/23/2020 08:34:17 03/30/2020 11:22:24 Thoracic radiculopathy 76696900 M54.14 Thoracic radiculopathy due to diabetes mellitus 076144234 E11.49 Health Concerns Section Related Observation LastModified by Organization Detai ls LastModified Time None Recorded Concern Status LastModified by Organization Details LastModified Time None Recorded Advance Directives Directive None Recorded Payers Encounter Date Sequence Insurance Name Policy Number Policy Cadena Covered Member ID Cadena Member ID Guarantor Name 03/23/[address] [place] [address] ([facility]) [id number] Dereck Moses [id number] Dereck Moses Notes Date Note Type Note Provider Name and Address Organization Details Recorded Time 03/23/2020 text/html Dereck Moses i s a 49 year old man with complaints of mid back pain, right sided which radiate into his chest and abdomen. He reports there was an injury with a bad golf swing in the fall of 2018. After the swing, his right side immediately got tight, he experienced shooting pain down right leg which persisted for the day, and the spasm in the right side of his back persisted. Underwent treatment with patches and creams, tried effexor (which he did not tolerate from cardiac perspective), gabapentin 800 mg per day (which caused tremor). When back spasms subsided, he started noticing the radiating pain wrapping around the front. He states he was seen at the pain management center at [facility] and had underwent trigger point injections and Lumbar epidural steroid injections which gave temporary pain benefit but no longterm pain benefit. He is having trouble sleeping due to pain in the back. He has seen Dr. Santhosh Jhaveri at [facility] at [place], [place] and had a deep muscle injection under fluoroscopic guidance . He states the pain relief lasted a few hours . He had to pay out of pocket and was expensive for such short term pain relief. He was seen by PT, and recalls he was offered exercises to work on posture. Has been using a TENS unit at home (from his chiropractor); they were trying it in multiple different spots and it didn't help. Underwent chiropractic treatments, without improvement. The pain is across the back, on both sides, with tender points under the ribs and to the right of the spine. He reports having a bump on his right side, first noticed by his , in the same area as the pain. When he eats or drinks the pain gets worse. He states that I feel like I have shingles on both sides of the stomach, straight across, like a bad sunburn, such that it hurts to have his shirt tucked in or to experience light touch in the region. He has had chicken pox but has never had shingles; they did not notice any rash or bumps or skin changes at all since the pain started. He was not sick at all leading up to this. It is difficult to walk, to stand for any period, or to work on computer. He has no history of bowel or bladder incontinence.He has trialed lyrica and topamax with no pain benefit.MRI Thoracic spine shows there is no marrow edema. No acute or subacute compression fracture. Small posterior disc herniations of the thoracic spine. He is a diabetic and his last HbA1c was 11. He has not seen an cotton inspector recently.He states he has had low back surgery with Dr. Junior 30 years ago. Currently has no low back pain. Thenu Manikantan, MD [address] [place] [address] , [address], [place], [address], [facility] - Pain Management 03/30/2020 11:08:06
--- OUTSIDE RECORDS SUMMARY | 2024-12-15 10:00 | XMS_ITS | Referral Summary ---
Author Organization [facility] Address [address] [place] [address] Care Team Providers Care Peripheral Edp Equipment Operator Name Role Phone Alejandro Mcfadden Primary Care Provider [phone] Allergies Active Allergy Reactions Criticality Noted Date [...] glucose scanning reader (FreeStyle Azra 14 Day [place]) misc FreeStyle Azra 14 Day [place] Active flash glucose sensor (FreeStyle Azra 14 [...] 09/26/2021 7:45 AM EST Plan of Treatment Not on file Insurance [facility] Care Teams Peripheral Edp Equipment Operator Relationship Specialty Start Date End Date Alejandro Mcfadden [address] [place] [address] [phone] PCP - General Internal Medicine 09/18/21
--- OUTSIDE RECORDS SUMMARY | 2024-12-15 10:01 | XMS_ITS ---
Author Organization [facility] Address [address] [place] [address] Care Team Providers Care Project Manager Entertainment And Media Name Role Phone Alejandro Mcfadden MD Primary Care Provider Unavailab Michael Bender Unavailable [phone] REASON FOR VISIT NS 04/20/2024 appt Encounters Encounter [facility] Date [facility] [address] [facility] Michael Salguero Plan Of Treatment No Information Progress Notes * Dereck JIMENEZ EDOB: [birth year] (53 yo M)Acc No.[id number]:04/20/2024 Patient:?Dereck Jimenez :1970???Age:53 Y???Sex:Male Address:[address] [place] [address], [address] * true * Date:? Generated for Printi ng/Faxing/eTransmitting on:?12/15/2024 10:01 AM EDT
--- OUTSIDE RECORDS SUMMARY | 2024-12-15 10:01 | XMS_ITS ---
Author Organization [facility] Address [address] [place] [address] Care Team Providers Care Cupola Mechanic Name Role Phone Lesa GUTIERREZ, Alejandro Primary Care Provider Unavailab Michael Bender Unavailable [phone] [address] Salguero Encounters Encounter Location Date [facility] [address] [address] 02/15/2024 Michael Salguero Plan Of Treatment No Information Progress Notes * Dereck JIMENEZ EDOB: [birth year] (54 yo M)Acc No.[id number]:02/15/2024 Progress Note Patient:?Dereck JIMENEZ Provider:?Michael Salguero DPM :1970???Age:53 Y???Sex:Male Javy e:02/15/2024 Address:[address] [place], [place] [address] Pcp:Alejandro Mcfadden MD Subjective: * Chief Complaints: * ???1. per Dr Salguero. * Medical History:? Objective: * Vitals:? Assessment: Plan: * Treatment: * Images: * The named appointment provid er may or may not be the originator of this progress note, and it is not deemed complete until electronically signed by the appointment provider. Sign off status: Pending * Provider:?Michael Salguero DPM Date:?2023 Generated for Lenny westfall/Stephanie/Giulia on:?12/15/2024 10:00 AM EDT
[2024-12-15 10:10] VITALS: BP 147/79; PULSE 82; RESP 16; O2SAT 95
== END 2024-12-15 10:52 | disposition home or self-care (01) ==
LOC: HO.PMCPRC 09:16
PROVIDERS: PCP Internal Medicine; Visit Provider Internal Medicine
DX: M54.59 Other low back pain (principal)
CPT/HCPCS: 62323

== ENCOUNTER 2024-12-21 10:08 | Outpatient (AMB) | payer OTHER, SELFPAY ==
[2024-12-21 10:22] VITALS: BP 133/80; PULSE 81; RESP 16; O2SAT 98; BMI 28.5
--- NOTE | 2024-12-21 10:22 | MHC.OFFVIS ---
Vital Signs 12/21/24 10:22 Height 6 ft 1 in Weight 216 lb BMI 28.5 BP 133/80 Blood Pressure Location Rt brachial Position Sitting Respiration 16 Pulse 81 Pulse Source Pulse Oximeter Pulse Oximetry (%) 98 Oxygen Delivery Method Room Air Intake Visit Reasons: s/p ITDD trial Allergies duloxetine [From Cymbalta] Allergy (Verified 12/21/24 10:24) unknown nabumetone Allergy (Verified 12/21/24 10:24) unknown penicillin G Allergy (Verified 12/21/24 10:24) unknown venlafaxine [From Effexor] Allergy (Verified 12/21/24 10:24) unknown Medication List - Last Reconciled 12/21/24 by Hilda Kong LPN aspirin (Adult Aspirin Regimen) 81 mg PO DAILY carvedilol 3.125 mg PO BID diazepam 5 mg PO BID PRN empagliflozin (Jardiance) 25 mg PO DAILY glipizide 10 mg PO BID isosorbide mononitrate ER 30 mg PO DAILY lidocaine 5% (Lidoderm) 1 patch transdermal DAILY naloxone 4 mg/actuation (Narcan) 4 mg intranasal Q2M PRN pantoprazole DR (Protonix) 40 mg PO DAILY rosuvastatin 40 mg PO DAILY zolpidem 10 mg PO BEDTIME PRN 30 days HPI HPI s/p ITDD trial: Details: History of Present Illness The patient is a 54-year-old male presenting with side effects following a trial of intrathecal Dilaudid for lumbar spine pain management. The patient reported severe dizziness, inability to keep food down, and urinary retention requiring seated urination, with improvement by the end of the week. The patient has a history of muscle spasticity and nerve pain between the ribs, with previous use of baclofen without significant relief. The spinal stimulator only partially alleviates symptoms, helping with external nerve issues but not with internal muscle flares. Symptoms mimicked a sensation similar to shingles, with heightened sensitivity on the ribs, affecting daily activities and sleep. Pain Description - Onset and Timing: Severe dizziness and gastrointestinal discomfort following intrathecal trial. - Quality and Character: Dizziness with sensation of room spinning, accompanied by muscle spasms and urinary retention. - Primary Location: Lumbar spine. - Areas of Radiation: Pain between ribs with heightened skin sensitivity. - Exacerbating Factors: Movement and standing urination. - Relieving Factors: None identified; partial relief from a spinal stimulator. - Functional Impact: Interference with basic movements, sleep, and daily activities; requiring seated urination. Physical Exam - Appears afebrile. - Alert and oriented. - Mood and affect appropriate. - Follows and participates in conversation appropriately. - Respiratory effort is unlabored. - Able to transition from sit to stand unassisted. Results - Failed ITDD trial Pain Management - Affect: The side effects have severely impacted the patient's mood and ability to function normally. - Analgesia: Currently trialing intrathecal Dilaudid with noted severe side effects; partial pain relief with spinal stimulator. - Adverse Effects: Significant dizziness, nausea, anorexia, urinary retention, and sleep disturbances. - Activities of Daily Living: Difficulty with basic movements, disturbed sleep due to muscle spasms and nerve pain. - Aberrant Drug Related Behaviors: None reported. 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 pain with sciatica BARRY (obstructive sleep apnea) Post laminectomy syndrome Rib pain Thoracic radiculopathy due to diabetes mellitus Type 2 diabetes mellitus Surgical History Presence of stent in coronary artery Social History Patient Tobacco Use Status: Never used Tobacco Second Hand Smoke Exposure: No Substance Use Type: Marijuana Physical Exam Vital Signs: Last Vital Signs Pulse 81 12/21/24 10:22 Resp 16 12/21/24 10:22 BP 133/80 12/21/24 10:22 Pulse Ox 98 12/21/24 10:22 Oxygen Delivery Method Room Air 12/21/24 10:22 BMI result Body Mass Index 28.5 Assessment & Plan Assessment & Plan (1) Intractable low back pain: Code(s): M54.59 - Other low back pain Category: Medical (2) Intercostal neuralgia: Code(s): G58.8 - Other specified mononeuropathies Category: Medical Plan Plan After experiencing adverse effects from the intrathecal Dilaudid, I suggested waiting for symptoms to subside before initiating memantine at 7 mg daily to target nerve pain. We will reassess after a month of treatment with the option to increase dosage if well-tolerated. Low-dose naltrexone was discussed as a secondary option for neuropathic pain pending insurance issues. The patient should continue using the spinal stimulator for external nerve pain management and follow up next month via a telephone visit to evaluate treatment response. Patient was informed and verbally consented to the use of an ambient scribe for clinic note documentation during this visit. Discussion Notes I explained to the patient the potential benefits of memantine for neuropathic pain management and its minimal side effect profile. The patient was informed of the option to trial low-dose naltrexone if insurance issues are resolved due to its use for pain control at a lower dosage. I advised on the continued use of the spinal stimulator for its limited benefits and encouraged monitoring symptoms to see if memantine provides relief. Future adjustments will be considered based on the patient's response and tolerance in our next follow-up, where a telephone consultation is sufficient unless symptoms change. Patient Instructions - Wait one week to initiate memantine at 7 mg daily. - Use the spinal stimulator as needed for external nerve pain. - Schedule a follow-up telephone appointment in one month to evaluate treatment effectiveness. - Report any new or worsening symptoms. - Consider low-dose naltrexone if insurance approval is feasible. - Contact immediately if experiencing concerning side effects or increased pain. Medications: New memantine 7 mg PO DAILY 30 ea 0RF Coding Level of Care Code Est Pt Level 4 (61480) Diagnoses Intractable low back pain M54.59 Intercostal neuralgia G58.8
--- OUTSIDE RECORDS SUMMARY | 2024-12-21 11:41 | XMS_ITS | Patient Health Record ---
Author Organization [facility] Address [address] [facility] [place] [address] Care Team Providers Care Shipyard Laborer Name Role Phone Alejandro Mcfadden MD Primary Care Provider Unavailab Michael Bender Unavailable [phone] Allergies Allergen (clinical drug ingredient) Drug/Non Drug Allergy documented on EMR Reaction Allergy Type Onset Date Status Effexor Unknown Drug Allergy Active nabumetone Nabumetone Unknown Drug Allergy Activ e Penicillin hives Drug Allergy Active Reason For Referral No Information Medications Medication SIG (Take, Route, Frequency, Duration) Notes Start Date End Date Status Dilaudid 2 MG/ML 1 ml as needed Injec tion every 6 hrs Active Clopidogrel Bisulfate 75 MG 1 tablet Ora lly Once a day for 30 day(s) Active Carvedilol 3.125 MG 1 tablet with food O rally Twice a day for 30 day(s) Active Rosuvastatin Calcium 40 MG 1 tablet Oral ly Once a day for 30 day(s) Active Pregabalin 75 MG 1 capsule Orally Twi ce a day Active Aspirin 81 MG 1 tablet Orally Once a day Active Ammonium Lactate 12 % 1 application to a ffected area Externally to feet Twice a day for 30 days Active Isosorbide Mononitrate ER 30 MG 1 tablet in the morning Orally Once a day for 30 day(s) Active glipiZIDE Active Methocarbamol 500 MG 1 tablet Orally 3 t imes a day Active Jardiance Active Social History Tobacco Use: Social History Observation Description Date Details (start date - stop date) Never Smoker NA - NA Tobacco Use/Smoking Question Answer Notes Are you a: nonsmoker Additional Findings: Tobacco Non-User Current no n-smoker Alcohol Screen Question Answer Notes Did you have a drink contain ing alcohol in the past year? Yes How often did you have a dri nk containing alcohol in the past year? 4 or more times a week (4 points) Points 4 Interpretation Positive Tobacco use other than smoking: Question Answer Notes Are you an other tobacco user? No Problems Problem Type SNOMED Code ICD Code Onset Dates Problem Status W/U Status Risk Notes Problem Acquired hammer toe of right foot (6690577531184724 ) Other hammer toe(s) (acquired), right foot (M20.41) Active confirmed Response to treatment, Improvemen t Problem Acquired hammer toe of left foot (0875025926235951 ) Other hammer toe(s) (acquired), left foot (M20.42) Active confirmed Response to treatment, Improvemen t Problem Polyneuropathy due to type 2 diabetes mellitus (610618409) Type 2 diabetes mellitus with diabetic polyneuropathy (E11.42) Active confirmed Vital Signs Height 6ft 1 in in 01/19/2024 Weight 228 lbs 01/19/2024 BMI 30.08 kg/m2 01/19/2024 Procedures Procedure Date Ordered Date Performed Result Body Sit e 46856-HGWTLZP NAIL, 6 OR MORE 01/19/2024 N/A 38056-[place] Plate 01/19/2024 N/A 19763-WFNL SKIN LESIONS, OVER 4 01/19/2024 N/A Encounters Encounter Location Date [facility] [address] [place] [address] 01/19/2024 Michael Salguero Type 2 diabetes mellitus with diabetic polyneuropathy E11.42 ; Onychomycosis B35.1 and Ingrown nail L60.[address] [facility] [address] 04/20/2024 Michael Salguero Assessments Encounter Date Diagnosis (ICD Code) Assessment Notes Treatment Notes Treatment Clinical Notes Section Notes 01/19/2024 Type 2 diabetes mellitus with diabetic polyneuropathy (ICD-10 - E11.42) 01/19/2024 Onychomycosis (ICD-10 - B35.1) 01/19/2024 Ingrown nail (ICD-10 - L60.0) Plan Of Treatment Pending Test Test Name Order Date 04815-GFESJUP NAIL, 6 OR MORE 03/07/2021 20461-ZWVHVJR NAIL, 6 OR MORE 06/06/2021 08313-GGGRXDF NAIL, 6 OR MORE 09/12/2021 28557-WOFNJIQ NAIL, 6 OR MORE 12/12/2021 18200-KQQHEQR NAIL, 6 OR MORE 12/03/2022 22840-MUCUQSG NAIL, 6 OR MORE 02/23/2023 33642-EWWBQEQ NAIL, 6 OR MORE 05/25/2023 79662-MUYOVCS NAIL, 6 OR MORE 01/19/2024 39874-Ctebpwli Plate 01/19/2024 77888-VADR SKIN LESIONS, OVER 4 01/19/20 24 34683-DPPR SKIN LESIONS, OVER 4 05/25/20 23 98421-JWZA SKIN LESIONS, OVER 4 02/24/20 23 15435-IJOU SKIN LESIONS, OVER 4 12/04/19 23 49554-HCFR SKIN LESIONS, OVER 4 12/13/19 22 38084-TZYZ SKIN LESIONS, OVER 4 09/12/19 22 06398-WIKL SKIN LESIONS, OVER 4 06/06/20 21 15572-FTKD SKIN LESIONS, OVER 4 03/07/20 21 71714-Affw. Subungual Hematoma 3 Insurance Providers Payer Name Payer Address Payer Phone Subscriber Number Group Number Insured Name Patient Relationship to Insured Coverage Start Date Coverage End Date [facility] [address] [facility] [place] [address] [id number] Talita Jimenez Spouse - patient is the spouse of the insured Medical (General) History Medical History History ICD Code Back,Hip,and Knee pain type II diabetes Chicken pox Heart disease Numbness Reflux Sciatica Surgical History Surgery Date(Month/Year) back surgery x 2 shoulder surgery 2005 knee surgery, left 1993 stent insertion 12/2020 trigger point injections, back 03/06/21 Heart Attack 2017 shoulder surgery 12/2022
--- OUTSIDE RECORDS SUMMARY | 2024-12-21 11:41 | XMS_ITS | Referral Summary ---
Author Organization [facility] Address [address] [place] [address] Care Team Providers Care Director Merit System Name Role Phone Alejandro Mcfadden Primary Care Provider [phone] Allergies Active Allergy Reactions Criticality Noted Date [...] glucose scanning reader (FreeStyle Azra 14 Day [place]) misc FreeStyle Azra 14 Day [place] Active flash glucose sensor (FreeStyle Azra 14 [...] Plan of Treatment Not on file Insurance [facility] Care Teams Director Merit System Relationship Specialty Start Date End Date Alejandro Mcfadden [address] [place] [address] [phone] PCP - General Internal Medicine 09/18/21
--- OUTSIDE RECORDS SUMMARY | 2024-12-21 11:41 | XMS_ITS | Data Portability ---
Author Organization [facility], PAIN OFFICE Address [address] [address] Care Team Providers Care Extruder Operator Multiple Name Role Phone NICOLASA ROMERO Primary Care Provider Assessment Encounter Date Assessment Date Assessment LastModified [...] By Organization Details Last Modified Time 03/23/2020 10873 He was advised against bed rest lasting longer than four days and to continue activities as tolerated. [email or web address] Not available 03/30/2020 11:04:41 Reason for Referral None Reported. Problems Name Problem SNOMED Code Status Onset Date Resolution Date Notes Provider Name and Address Organization Details Recorded Time Thoracic radiculopathy 09330914 Active Jessica prince MD [address] , [address], [place], [address], [place] [facility] 0 08:59:08 Thoracic radiculopathy due to diabetes mellitus 615071081 Active Jessica prince MD [address] , [address], [place], [address], [place] [facility] 0 10:27:45 Problem Notes None recorded. Procedures Surgical History Date Name Laterality Status Provider Name and Address Organization Details Recorded Time Back Surgery completed Jessica Canales MD [address] [facility] , [address], [place], [address], [place] [facility] 03/23/2020 09:04:31 Shoulder joint surgery completed Jessica Canales MD [address] [facility] , [address], [place], [address], [place] [facility] 03/23/2020 09:04:55 Knee Surgery completed Jessica Canales MD [address] [facility] , [address], [place], [address], [place] [facility] 03/23/2020 09:05:19 placement of stent in cardiac conduit completed Jessica Canales MD [address] [facility] , [address], [place], [address], [place] [facility] 03/23/2020 09:05:41 Imaging Results None recorded. Procedure Notes None recorded. Medical Equipment None Reported. Allergies Allergen ID Allergen Name Allergen Category Reaction Reaction Severity Criticality Documentation Date Start Date Code Code System Note Provider Name and Address Organization Details Recorded Time 30142 Product containin g penicilli n (product) medicatio n anaphylax is Not available Not available 03/23/2020 22656 8001 SNOMED Jessica prince MD [address] , [address], [place], [address], [place] [facility] 0 08:54:07 81474 nabumeton e medicatio n Not available Not available Not available 03/23/2020 32501 RxNorm Jessica prince MD [address] [facility] , [address], [place], [address], [place] [facility] 0 08:54:20 70781 Effexor medicatio n chest pain Not available Not available 03/23/2020 52128 2 RxNorm Jessica prince MD [address] [facility] , [address], [place], [address], [place] [facility] 0 08:54:34 57035 Cymbalta medicatio n Not available Not available Not available 03/23/2020 87728 4 RxNorm stoma ch pain Jessica prince MD [address] [facility] , [address], [place], [address], [place] [facility] 0 [...] Available Not Available FreeStyle Azra 14 Day [place] active Not Available Not Available N ot [...] Updated DateTime 0 185.42 cm 28.9 kg/m2 95407.7 3 g 81 /min 99 % 99 % 5 120 mm[Hg] 75 mm[Hg] Jessica prince MD [address] [facility] , [address], [place], [address], [place] - [facility] 0 11:05:35 Social History Question Answer Notes LastModified by Organizat ion Details LastModified Time Tobacco Smoking Status Never Smoker Jessica Canales MD [address] [facility] , [address], [place], [address], [place] [facility] 03/23/2020 09:00:03 [...] SNOMED-CT Code Diagnosis ICD10 Code Diagnosis Note 03521 Jessica Canales MD PAIN OFFICE [address] [place] [address] 03/23/2020 08:34:17 03/30/2020 11:22:24 Thoracic radiculopathy 14345742 M54.14 Thoracic radiculopathy due to diabetes mellitus 970447636 E11.49 Health Concerns Section Related Observation LastModified by Organization Detai ls LastModified Time None Recorded Concern Status LastModified by Organization Details LastModified Time None Recorded Advance Directives Directive None Recorded Payers Encounter Date Sequence Insurance Name Policy Number Policy Cadena Covered Member ID Cadena Member ID Guarantor Name 03/23/[address] [place] [address] ([facility]) [id number] Dereck Moses [id number] Dereck Moses Notes Date Note Type Note [...] seen at the pain management center at [facility] and had underwent trigger point injections and Lumbar epidural steroid injections which gave temporary pain benefit but no long-term pain benefit. He is having trouble sleeping due to pain in the back. He has seen Dr. Santhosh Jhaveri at [facility] at [place], [place] and had a deep muscle injection [...] was 9. He has not seen an case management manager recently.He states he has had low back surgery with Dr. Junior 30 years ago. Currently has no low back pain. Thenu Manikantan, MD [address] [place] [address] , [address], [place], [address], [facility] - Pain Management 03/30/2020 11:08:06
--- OUTSIDE RECORDS SUMMARY | 2024-12-21 11:41 | XMS_ITS ---
Author Organization [facility] Address [address] [place] [address] Care Team Providers Care Tube Man Name Role Phone Lesa GUTIERREZ, Alejandro Primary Care Provider Unavailab Michael Bender Unavailable [phone] Encounters Encounter Location Date Provider Diagnosis [facility] [address] [address] 04/20/2024 Michael Salguero Plan Of Treatment No Information Progress Notes * Dereck JIMENEZ EDOB: [birth year] (54 yo M)Acc No.[id number]:04/20/2024 Progress Note Patient:?Dereck JIMENEZ Provider:?Michael Salguero DPM :1970???Age:53 Y???Sex:Male Javy e:04/20/2024 Address:[address] [place], [place] [address] Pcp:Alejandro Mcfadden MD Subjective: * Chief Complaints: [...] Salguero DPM Date:?2023 Generated for Lenny westfall/Stephanie/eTransmitting on:?12/21/2024 11:41 AM EDT
--- OUTSIDE RECORDS SUMMARY | 2024-12-21 11:41 | XMS_ITS ---
Author Organization [facility] Address [address] [place] [address] Care Team Providers Care Food Service Sales Representatives Name Role Phone Lesa GUTIERREZ, Alejandro Primary Care Provider Unavailab Michael Bender Unavailable [phone] Salguero Encounters Encounter Location Date Provider [facility] [address] [address] 02/15/2024 Michael Salguero Plan Of Treatment No Information Progress Notes * Dereck JIMENEZ EDOB: [birth year] (54 yo M)Acc No.[id number]:02/15/2024 Progress Note Patient:?Dereck JIMENEZ Provider:?Michael Salguero DPM :1970???Age:53 Y???Sex:Male Javy e:02/15/2024 Address:[address] [place], [place] [address] Pcp:Alejandro Mcfadedn MD Subjective: * Chief Complaints: * ???1. [...] Salguero DPM Date:?2023 Generated for Lenny westfall/Stephanie/Giulia on:?12/21/2024 11:41 AM EDT
--- OUTSIDE RECORDS SUMMARY | 2024-12-21 11:41 | XMS_ITS | Clinical Summary ---
Author Organization [facility] Address [address] [place] [address] Care Team Providers Care Octave Board Racker Name Role Phone Alejandro Mcfadden Primary Care Provider [phone] Allergies Active Allergy Reactions Criticality Noted Date [...] glucose scanning reader (FreeStyle Azra 14 Day [place]) misc FreeStyle Azra 14 Day [place] Active flash glucose sensor (FreeStyle Azra 14 [...] 1-dose 75+ series) 2043 Insurance Care Teams Octave Board Racker Relationship Specialty Start Date End Date Alejandro Mcfadden [facility] [place] [address] PCP - General Internal Medicine 09/18/21
--- OUTSIDE RECORDS SUMMARY | 2024-12-21 11:42 | XMS_ITS ---
Author Organization [facility] Address [address] [place] [address] Care Team Providers Care Inspector Machine Cut Glass Name Role Phone Alejandro Mcfadden MD Primary Care Provider Unavailab Michael Bender Unavailable [phone] REASON FOR VISIT NS 04/20/2024 appt Encounters Encounter [facility] [address] 04/20/2024 Michael Salguero Plan Of Treatment No Information Progress Notes * Dereck JIMENEZ EDOB: [birth year] (53 yo M)Acc No.[id number]:04/20/2024 Patient:?Dereck Jimenez :1970???Age:53 Y???Sex:Male Address:[address] [place], [place] [address], [address] * true * Date:? Generated for Printi ng/Faxing/eTransmitting on:?12/21/2024 11:41 AM EDT
== END 2024-12-21 10:37 | disposition home or self-care (01) ==
PROVIDERS: PCP Internal Medicine; Visit Provider Internal Medicine
DX: M54.59 Other low back pain (principal); G58.8 Other specified mononeuropathies
CPT/HCPCS: 99214

== ENCOUNTER → 2024-12-21 10:08 | Outpatient (BNVA) | payer OTHER, SELFPAY | PROVIDERS: PCP Internal Medicine; Visit Provider Internal Medicine ==

== ENCOUNTER 2025-01-18 10:41 | Outpatient (AMB) | payer OTHER, SELFPAY ==
--- NOTE | 2025-01-18 10:42 | MHC.OFFVIS ---
Intake Visit Reasons: 1 Month FU Allergies duloxetine [From Cymbalta] Allergy (Verified 12/21/24 10:24) unknown nabumetone Allergy (Verified 12/21/24 10:24) unknown penicillin G Allergy (Verified 12/21/24 10:24) unknown venlafaxine [From Effexor] Allergy (Verified 12/21/24 10:24) unknown HPI HPI 1 Month FU: Details: History of Present Illness The patient is a 54-year-old male presenting with persistent pain management issues. Currently on memantine at 7 mg daily, he reports no symptomatic relief from this regimen. There is no record of side effects from the medication, neither improvement in symptoms since the start of memantine. The absence of perceived benefit led to the discussion of increasing the memantine dose. The patient has not yet trialed low-dose naltrexone. Overall, memantine treatment remains ineffective currently, leading to the consideration of dosage adjustment to optimize pain management. 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 Low back pain with sciatica BARRY (obstructive sleep apnea) Post laminectomy syndrome Rib pain Thoracic radiculopathy due to diabetes mellitus Type 2 diabetes mellitus Surgical History Presence of stent in coronary artery Social History Patient Tobacco Use Status: Never used Tobacco Second Hand Smoke Exposure: No Substance Use Type: Marijuana Telehealth Telehealth Telehealth Platform: Doximity Location of provider rendering services: practice address Location of patient: address on file Patient Identification confirmed using: Name, : Yes Telehealth method: video Patient verbally consented to treatment: Yes Patient verbally consented to billing insurance company: Yes Patient informed of any privacy concerns related to visit: Yes Assessment & Plan Assessment & Plan (1) Intractable low back pain: Code(s): M54.59 - Other low back pain Category: Medical (2) Post laminectomy syndrome: Comment: Status post Nevro SCS placement (T4-T6) Code(s): M96.1 - Postlaminectomy syndrome, not elsewhere classified Category: Medical (3) Intercostal neuralgia: Code(s): G58.8 - Other specified mononeuropathies Category: Medical Plan Plan - Increase memantine to 14 mg daily as 7 mg was ineffective - Reassessment of treatment efficacy in a month - Potential dose increase to 21 mg if needed - Consideration of low-dose naltrexone trial if memantine continues to be ineffective Patient was informed and verbally consented to the use of an ambient scribe for clinic note documentation during this visit. Discussion Notes I discussed the inefficacy of the current memantine dosage with the patient, and outlined the plan to increase from 7 mg to 14 mg daily. The patient agreed, understanding this adjustment might ameliorate symptoms. We reviewed the absence of side effects and laid a plan to reassess in one month. It was also mentioned that should the adjustment remain ineffective, an exploration of low-dose naltrexone is a possible future course. Patient Instructions - Take memantine at the new dosage of 14 mg daily - Do not fill the 7 mg prescription - Return for assessment in one month - Discuss any side effects or new symptoms if they occur Medications: New memantine 14 mg PO DAILY 30 ea 0RF Discontinued memantine Discontinued Reason: Duplicate 7 mg PO DAILY 30 ea 0RF Coding Level of Care Code Tele Est Pt Level 3 (18188) Diagnoses Intractable low back pain M54.59 Post laminectomy syndrome M96.1 Intercostal neuralgia G58.8
--- OUTSIDE RECORDS SUMMARY | 2025-01-18 11:44 | XMS_ITS | Patient Health Record ---
Author Organization [facility] Address [address] [facility] [place] [address] Care Team Providers Care Color Maker Dyer Name Role Phone Alejandro Mcfadden MD Primary Care Provider Unavailab Michael Bender Unavailable [phone] Allergies Allergen (clinical drug ingredient) Drug/Non Drug [...] Problem Acquired hammer toe of right foot (4015704798791897 ) Other hammer toe(s) (acquired), right foot (M20.41) Active confirmed Response to treatment, Improvemen t Problem Acquired hammer toe of left foot (9135081617504165 ) Other hammer toe(s) (acquired), left foot (M20.42) Active confirmed Response to treatment, Improvemen t Problem Polyneuropathy due to type 2 diabetes mellitus (645495897) Type 2 diabetes mellitus with diabetic polyneuropathy (E11.42) Active confirmed Vital Signs Height 6ft 1 in in 01/19/2024 Weight 228 lbs 01/19/2024 BMI 30.08 kg/m2 01/19/2024 Procedures Procedure Date Ordered Date Performed Result Body Sit e 42239-PMLBACI NAIL, 6 OR MORE 01/19/2024 N/A 13315-Gpsipslr Plate 01/19/2024 N/A 65555-VOBC SKIN LESIONS, OVER 4 01/19/2024 N/A Encounters Encounter Location Date [facility] [address] [place] [address] 01/19/2024 Michael Salguero Type 2 diabetes mellitus with diabetic polyneuropathy E11.42 ; Onychomycosis B35.1 and Ingrown nail L60.[address] [address] 04/20/2024 Michael Salguero Assessments Encounter Date Diagnosis (ICD Code) Assessment Notes Treatment Notes Treatment Clinical Notes Section Notes 01/19/2024 Type 2 diabetes mellitus with diabetic polyneuropathy (ICD-10 - E11.42) 01/19/2024 Onychomycosis (ICD-10 - B35.1) 01/19/2024 Ingrown nail (ICD-10 - L60.0) Plan Of Treatment Pending Test Test Name Order Date 43236-SPMQRMS NAIL, 6 OR MORE 03/07/2021 89560-KLCBWDJ NAIL, 6 OR MORE 06/06/2021 44725-IERJLYP NAIL, 6 OR MORE 09/12/2021 34675-DNPTQHQ NAIL, 6 OR MORE 12/12/2021 43199-GSSODIS NAIL, 6 OR MORE 12/03/2022 62239-WAIXHCT NAIL, 6 OR MORE 02/23/2023 82882-JCKBUQE NAIL, 6 OR MORE 05/25/2023 41569-DYBAPRD NAIL, 6 OR MORE 01/19/2024 42912-Yebqzymk Plate 01/19/2024 63618-JXED SKIN LESIONS, OVER 4 01/19/20 24 49189-XGUT SKIN LESIONS, OVER 4 05/25/20 23 78286-FONX SKIN LESIONS, OVER 4 02/24/20 23 02080-EDPF SKIN LESIONS, OVER 4 12/04/19 23 33132-LGXI SKIN LESIONS, OVER 4 12/13/19 22 22840-ETFP SKIN LESIONS, OVER 4 09/12/19 22 46995-ZPME SKIN LESIONS, OVER 4 06/06/20 21 19595-MKNB SKIN LESIONS, OVER 4 03/07/20 21 22074-Abjr. Subungual Hematoma 3 Insurance Providers Payer Name Payer Address Payer Phone Subscriber Number Group Number Insured Name Patient Relationship to Insured Coverage Start Date Coverage End Date [facility] [address] [facility] [place] [address] [id number] Talita Jimenez Spouse - patient is [...]
--- OUTSIDE RECORDS SUMMARY | 2025-01-18 11:44 | XMS_ITS ---
Author Organization [facility] Address [address] [place] [address] Care Team Providers Care Parachute Manufacturing Supervisor Name Role Phone Lesa GUTIERREZ, Alejandro Primary Care Provider Unavailab Michael Bender Unavailable [phone] Encounters Encounter Location Date Provider Diagnosis [facility] [address] [address] 04/20/2024 Michael Salguero Plan Of Treatment No Information Progress Notes * Dereck JIMENEZ EDOB: [birth year] (54 yo M)Acc No.[id number]:04/20/2024 Progress Note Patient:?Dereck JIMENEZ Provider:?Michael Salguero DPM :1970???Age:53 Y???Sex:Male Javy e:04/20/2024 Address:[address] [place], [place] [address] Pcp:Alejandro Mcfadden MD Subjective: * Chief Complaints: [...] Salguero DPM Date:?2023 Generated for Lenny westfall/Stephanie/eTransmitting on:?01/18/2025 11:44 AM EDT
--- OUTSIDE RECORDS SUMMARY | 2025-01-18 11:44 | XMS_ITS | Clinical Summary ---
Author Organization [facility] Address [address] [place] [address] Care Team Providers Care Software Performance Engineer Name Role Phone Alejandro Mcfadden Primary Care Provider [phone] Allergies Active Allergy Reactions Criticality Noted Date [...] glucose scanning reader (FreeStyle Azra 14 Day [place]) misc FreeStyle Azra 14 Day [place] Active flash glucose sensor (FreeStyle Azra 14 [...] 1-dose 75+ series) 2043 Insurance Care Teams Software Performance Engineer Relationship Specialty Start Date End Date Alejandro Mcfadden [facility] [place] [address] PCP - General Internal Medicine 09/18/21
--- OUTSIDE RECORDS SUMMARY | 2025-01-18 11:44 | XMS_ITS | Referral Summary ---
Author Organization [facility] Address [address] [place] [address] Care Team Providers Care Watermelon Harvesting Supervisor Name Role Phone Alejandro Mcfadden Primary Care Provider [phone] Allergies Active Allergy Reactions Criticality Noted Date [...] glucose scanning reader (FreeStyle Azra 14 Day [place]) misc FreeStyle Azra 14 Day [place] Active flash glucose sensor (FreeStyle Azra 14 [...] Plan of Treatment Not on file Insurance [facility] Care Teams Watermelon Harvesting Supervisor Relationship Specialty Start Date End Date Alejandro Mcfadden [address] [place] [phone] PCP - General Internal Medicine 09/18/21
--- OUTSIDE RECORDS SUMMARY | 2025-01-18 11:45 | XMS_ITS ---
Author Organization [facility] Address [address] [place] [address] Care Team Providers Care Box Spring Upholsterer Name Role Phone Lesa GUTIERREZ, Alejandro Primary Care Provider Unavailab Michael Bender Unavailable [phone] RE[address]IT [address] Dr Salguero Encounters Encounter Location Date [facility] [address] [address] 02/15/2024 Michael Salguero Plan Of Treatment No Information Progress Notes * Dereck JIMENEZ EDOB: [birth year] (54 yo M)Acc No.[id number]:02/15/2024 Progress Note Patient:?Dereck JIMENEZ Provider:?Michael Salguero DPM :1970???Age:53 Y???Sex:Male Javy e:02/15/2024 Address:[address] [place], [place] [address] Pcp:Alejandro Mcfadden MD Subjective: * Chief Complaints: [...] Salguero DPM Date:?2023 Generated for Lenny westfall/Stephanie/Giulia on:?01/18/2025 11:44 AM EDT
--- OUTSIDE RECORDS SUMMARY | 2025-01-18 11:45 | XMS_ITS | Data Portability ---
Author Organization [facility] Address [address] [facility],[address] [address] Care Team Providers Care Reverberatory Skimmer Name Role Phone NICOLASA ROMERO Primary Care Provider [phone] Assessment Encounter Date Assessment Date Assessment LastModified [...] By Organization Details Last Modified Time 03/23/2020 92824 He was advised against bed rest lasting longer than four days and to continue activities as tolerated. [email or web address] Not available 03/30/2020 11:04:41 Reason for Referral None Reported. Problems Name Problem SNOMED Code Status Onset Date Resolution Date Notes Provider Name and Address Organization Details Recorded Time Thoracic radiculopathy 46639531 Active Jessica prince MD [address] , [address], [place], [address], [place] [facility] 0 08:59:08 Thoracic radiculopathy due to diabetes mellitus 331279049 Active Jessica prince MD [address] , [address], [place], [address], [place] [facility] 0 10:27:45 Problem Notes None recorded. Procedures Surgical History Date Name Laterality Status Provider Name and Address Organization Details Recorded Time Back Surgery completed Jessica Canales MD [address] [facility] , [address], [place], [address], [place] [facility] 03/23/2020 09:04:31 Shoulder joint surgery completed Jessica Canales MD [address] [facility] , [address], [place], [address], [place] [facility] 03/23/2020 09:04:55 Knee Surgery completed Jessica Canales MD [address] [facility] , [address], [place], [address], [place] [facility] 03/23/2020 09:05:19 placement of stent in cardiac conduit completed Jessica Canales MD [address] [facility] , [address], [place], [address], [place] [facility] 03/23/2020 09:05:41 Imaging Results None recorded. Procedure Notes None recorded. Medical Equipment None Reported. Allergies Allergen ID Allergen Name Allergen Category Reaction Reaction Severity Criticality Documentation Date Start Date Code Code System Note Provider Name and Address Organization Details Recorded Time 21155 Product containin g penicilli n (product) medicatio n anaphylax is Not available Not available 03/23/2020 08384 8001 SNOMED Jessica prince MD [address] , [address], [place], [address], [place] [facility] 0 08:54:07 24027 nabumeton e medicatio n Not available Not available Not available 03/23/2020 62233 RxNorm Jessica prince MD [address] [facility] , [address], [place], [address], [place] [facility] 0 08:54:20 19645 Effexor medicatio n chest pain Not available Not available 03/23/2020 30615 2 RxNorm Jessica prince MD [address] , [address], [place], [address], [place] [facility] 0 08:54:34 73139 Cymbalta medicatio n Not available Not available Not available 03/23/2020 36478 4 RxNorm stoma ch pain Jessica prince MD [address] , [address], [place], [address], [place] [facility] [...] Available Not Available FreeStyle Azra [employer] [place] active Not Available Not Available N ot [...] Updated DateTime 0 185.42 cm 28.9 kg/m2 31036.7 3 g 81 /min 99 % 99 % 5 120 mm[Hg] 75 mm[Hg] Jessica prince MD [address] , [address], [place], [address], [place] - [facility] 0 11:05:35 Social History Question Answer Notes LastModified by Organizat ion Details LastModified Time Tobacco Smoking Status Never Smoker Jessica Canales MD [address] , [address], [place], [address], [facility] 03/23/2020 09:00:03 Which Illicit Or Recreational Drugs Have You Used? None Marijuana Edibles Information not available 03/23/2020 Education 12 Information n ot available 03/23/2020 Live Alone Or With Others? With Others Information not available 03/23/2020 Marital Status Informati on not available 03/23/2020 Sex: Unknown Functional Status Question Answer Note LastModified by Organizat ion Details LastModified Time What is your level of alcohol consumption? Moderate Information not available 03/23/2020 What is your occupation? [email or web address] Information not available 03/23/2020 Mental Status None recorded. Family History Relationship [...] SNOMED-CT Code Diagnosis ICD10 Code Diagnosis Note [id number] Jessica Canales MD PAIN OFFICE [address] [place] [address] 03/23/2020 08:34:17 03/30/2020 11:22:24 Thoracic radiculopathy 52340851 M54.14 Thoracic radiculopathy due to diabetes mellitus 407415662 E11.49 Health Concerns Section Related Observation LastModified by Organization Detai ls LastModified Time None Recorded Concern Status LastModified by Organization Details LastModified Time None Recorded Advance Directives Directive None Recorded Payers Encounter Date Sequence Insurance Name Policy Number Policy Cadena Covered Member ID Cadena Member ID Guarantor Name 03/23/2020 1 [facility] [id number] Dereck Moses [id number] Dereck Moses Notes Date Note Type Note [...] seen at the pain management center at [facility] and had underwent trigger point injections and Lumbar epidural steroid injections which gave temporary pain benefit but no snf pain benefit. He is having trouble sleeping due to pain in the back. He has seen Dr. Santhosh Jhaveri at [facility] at [place], [place] and had a deep muscle injection [...] was 9. He has not seen an solar consultant recently.He states he has had low back surgery with Dr. Junior 30 years ago. Currently has no low back pain. Jessica Canales MD [address] [place] [address] , [address], [place], [address], [facility] - Pain Management 03/30/2020 11:08:06
--- OUTSIDE RECORDS SUMMARY | 2025-01-18 11:45 | XMS_ITS ---
Author Organization [facility] Address [address] [place] [address] Care Team Providers Care Auricular Detoxification Specialist Name Role Phone Alejandro Mcfadden MD Primary Care Provider Unavailab Michael Bender Unavailable [phone] REASON FOR VISIT NS 04/20/2024 appt Encounters En[facility] Date [facility] [address] [facility] Michael Salguero Plan Of Treatment No Information Progress Notes * Dereck JIMENEZ EDOB: [birth year] (53 yo M)Acc No.[id number]:04/20/2024 Patient:?Dereck Jimenez :1970???Age:53 Y???Sex:Male Address:[address] [place], [place] [address] [place], [address] * true * Date:? Generated for Printi ng/Faxing/eTransmitting on:?01/18/2025 11:44 AM EDT
== END 2025-01-18 10:42 | disposition home or self-care (01) ==
LOC: HO.PMC 10:41
PROVIDERS: PCP Internal Medicine; Visit Provider Internal Medicine
DX: M54.59 Other low back pain (principal); M96.1 Postlaminectomy syndrome, not elsewhere classified; G58.8 Other specified mononeuropathies
CPT/HCPCS: 99213

== ENCOUNTER 2025-08-11 12:08 | Outpatient (AMB) | payer OTHER, SELFPAY ==
--- NOTE | 2025-08-11 12:10 | MHC.OFFVIS ---
Vital Signs 08/11/25 12:11 Height 6 ft 1 in Weight 227 lb BMI 29.9 BP 132/83 Blood Pressure Location Lt brachial Position Sitting Respiration 16 Pulse 85 Pulse Source Pulse Oximeter Pulse Oximetry (%) 99 Oxygen Delivery Method Room Air Intake Visit Reasons: Back Pain Radiating to Arms/Legs Otolaryngology Nurse Required: No Allergies duloxetine (From Cymbalta) Allergy (Verified 08/11/25 12:12) unknown nabumetone Allergy (Verified 08/11/25 12:12) unknown penicillin G Allergy (Verified 08/11/25 12:12) unknown venlafaxine (From Effexor) Allergy (Verified 08/11/25 12:12) unknown Medication List - Last Reconciled 08/11/25 by Hilda Kong LPN aspirin (Adult Aspirin Regimen) 81 mg PO DAILY carvedilol 3.125 mg PO BID diazepam 5 mg PO BID PRN empagliflozin (Jardiance) 25 mg PO DAILY glipizide 10 mg PO BID insulin glargine (Lantus Solostar U-100 Insulin) units subcut isosorbide mononitrate ER 30 mg PO DAILY lidocaine 5% (Lidoderm) 1 patch transdermal DAILY pantoprazole DR (Protonix) 40 mg PO DAILY rosuvastatin 40 mg PO DAILY tizanidine 2 mg PO TID zolpidem 10 mg PO BEDTIME PRN 30 days HPI HPI Back Pain Radiating to Arms/Legs: Details: History of Present Illness The patient is a 55 year old male presenting for follow-up of chronic pain management. He reports persistent pain characterized by spasms in the upper back and thoracic region, which are exacerbated by cold weather. He notes a sensation of spreading nerve issues, with sensitive areas around his elbows, knees, and chest. The pain is variable, with some days where light touch from clothing against his knee causes significant pain. The patient's spinal cord stimulator is no longer effective. He previously underwent an intrathecal trial with hydromorphone (Dilaudid), but experienced an adverse reaction of nausea and vomiting without obtaining any pain relief. He has tolerated oral and ER-administered Dilaudid in the past without such issues. A prior psychology clearance for an intrathecal pump is valid until October 28. Pain Description - Onset and Timing: The patient reports ongoing, persistent pain. - Quality and Character: Described as spasms and spreading nerve pain with sensitive areas. - Location and Radiation: Pain is located in the upper back, thoracic area, and along the ribs at the thoracolumbar junction, with sensitivity spreading to the elbows, knees, and chest. - Exacerbating Factors: Cold weather worsens the pain. - Severity: Pain varies; on some days, light touch causes significant pain, while on others, he can tolerate impact without feeling it. Physical Exam - Appears afebrile. - Alert and oriented. - Mood and affect appropriate. - Follows and participates in conversation appropriately. - Respiratory effort is unlabored. - Able to transition from sit to stand unassisted. Results Pain Management - Analgesia: The patient reports persistent pain despite having a spinal cord stimulator, which is currently ineffective. - Prior Treatments: A previous intrathecal trial with hydromorphone (Dilaudid) failed to provide pain relief. - Adverse Effects: He experienced nausea and vomiting during the intrathecal hydromorphone trial. - Affect: The patient describes his situation as disparaging. 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 Low back pain with sciatica BARRY (obstructive sleep apnea) Post laminectomy syndrome Rib pain Thoracic radiculopathy due to diabetes mellitus Type 2 diabetes mellitus Surgical History Presence of stent in coronary artery Social History Patient Tobacco Use Status: Never used Tobacco Second Hand Smoke Exposure: No Substance Use Type: Marijuana Physical Exam Vital Signs: Last Vital Signs Pulse 85 08/11/25 12:11 Resp 16 08/11/25 12:11 BP 132/83 08/11/25 12:11 Pulse Ox 99 08/11/25 12:11 Oxygen Delivery Method Room Air 08/11/25 12:11 BMI result Body Mass Index 29.9 Assessment & Plan Assessment & Plan (1) Intractable low back pain: Code(s): M54.59 - Other low back pain Category: Medical (2) Post laminectomy syndrome: Comment: Status post Nevro SCS placement (T4-T6) Code(s): M96.1 - Postlaminectomy syndrome, not elsewhere classified Category: Medical Plan Plan Patient was informed and verbally consented to the use of an ambient scribe for clinic note documentation during this visit. 1. Chronic Pain - The patient's chronic pain in the upper back and thoracolumbar junction is not well-controlled, and his spinal cord stimulator is ineffective. - A previous intrathecal trial with hydromorphone failed due to both lack of efficacy and side effects of nausea and vomiting. - The plan is to proceed with a new intrathecal trial using fentanyl to assess for pain relief. - It was discussed to schedule the removal of the current spinal cord stimulator. - If the fentanyl trial is successful, the spinal cord stimulator removal may be performed at the same time as a permanent intrathecal pump implantation. - The patient's psychological clearance for a pump is valid until October 28, and the trial will be scheduled accordingly. Discussion Notes I reviewed the patient's persistent chronic pain, located primarily in the upper back and along the ribs, which is not being managed by his current spinal cord stimulator. We discussed his prior intrathecal trial with hydromorphone, which was unsuccessful due to a lack of pain relief and significant nausea. Given the failure of other modalities, I recommended a new intrathecal trial, this time with fentanyl, to determine if it could provide analgesia without the adverse effects. We discussed the plan to remove the existing spinal cord stimulator, potentially at the same time as implanting a permanent pain pump if the fentanyl trial is successful. We confirmed his psychological clearance for the pump is valid until October 28. The patient consented to proceed with scheduling the intrathecal fentanyl trial. Patient Instructions - We will schedule you for a trial procedure where a small amount of pain medication (fentanyl) will be placed in your spinal fluid to see if it helps your pain. - This trial will help us decide if a permanent pain pump is a good option for you. - We plan to remove your current spinal cord stimulator. - If the trial is successful, we may remove the stimulator and place the permanent pump at the same time. - Your psychological clearance for the pump is good until October 28, so we will need to schedule the trial before then. - Our office will contact you to schedule your trial procedure. Coding Level of Care Code Est Pt Level 3 (84286) Diagnoses Intractable low back pain M54.59 Post laminectomy syndrome M96.1
[2025-08-11 12:11] VITALS: BP 132/83; PULSE 85; RESP 16; O2SAT 99; BMI 29.9
== END 2025-08-11 13:20 | disposition home or self-care (01) ==
LOC: HO.PMC 12:08
PROVIDERS: PCP Internal Medicine; Visit Provider Internal Medicine
DX: M54.59 Other low back pain (principal); M96.1 Postlaminectomy syndrome, not elsewhere classified
CPT/HCPCS: 99213